=== PATIENT | female | born 1965 | race Caucasian/White ===

== ENCOUNTER 2016-11-15 | Outpatient (CLI) | payer OTHER | END 2016-11-15 08:46 | disposition home or self-care (01) | DX: Z53.9 Procedure and treatment not carried out, unspecified reason (principal) ==

== ENCOUNTER 2016-11-15 07:10 | Day surgery (SDC) | payer OTHER ==
[2016-11-15] MEDS ORDERED: LACTATED RINGERS 1,000 ML IV ONE (07:23)
[2016-11-15] MEDS ORDERED: BENZOCAINE/TETRACAINE/BUTAMBEN SPRAY 56 GM TOP ONE (08:46)
[2016-11-15] MEDS ORDERED: fentaNYL 100 MCG/2 ML VIAL IVP ONE (09:02)
[2016-11-15] MEDS ORDERED: MIDAZOLAM 2 MG/2 ML VIAL IVP ONE (09:02)
== END 2016-11-15 07:11 | disposition home or self-care (01) ==
PROC: 0DB68ZX Excision of Stomach, Via Natural or Artificial Opening Endoscopic, Diagnostic (ICD-10-PCS; 2016-11-15)
PROC: 0DB98ZX Excision of Duodenum, Via Natural or Artificial Opening Endoscopic, Diagnostic (ICD-10-PCS; principal; 2016-11-15 08:30)
DX: K21.9 Gastro-esophageal reflux disease without esophagitis (principal); K31.7 Polyp of stomach and duodenum; K44.9 Diaphragmatic hernia without obstruction or gangrene; I10 Essential (primary) hypertension; F41.8 Other specified anxiety disorders; Z87.891 Personal history of nicotine dependence
CPT/HCPCS: 43239; A9270; J7120

== ENCOUNTER 2016-11-22 | Outpatient (CLI) | payer OTHER | END 2016-11-22 16:19 | disposition home or self-care (01) | DX: M51.17 Intervertebral disc disorders with radiculopathy, lumbosacral region (principal) ==

== ENCOUNTER 2016-12-06 | Outpatient (CLI) | payer OTHER | END 2016-12-06 16:23 | disposition home or self-care (01) ==

== ENCOUNTER 2016-12-07 09:37 | Outpatient (CLI) | payer OTHER | END 2016-12-07 09:38 | disposition home or self-care (01) | DX: K76.0 Fatty (change of) liver, not elsewhere classified (principal) ==

== ENCOUNTER 2016-12-13 | Outpatient (CLI) | payer OTHER | END 2016-12-13 15:16 | disposition home or self-care (01) | DX: M54.16 Radiculopathy, lumbar region (principal) ==

== ENCOUNTER 2016-12-20 | Outpatient (CLI) | payer OTHER | END 2016-12-20 16:26 | disposition home or self-care (01) ==

== ENCOUNTER 2017-01-03 15:36 | Outpatient (CLI) | payer OTHER | END 2017-01-03 15:37 | disposition home or self-care (01) | DX: R16.0 Hepatomegaly, not elsewhere classified (principal) ==

== ENCOUNTER 2017-01-10 16:28 | Outpatient (CLI) | payer OTHER | END 2017-01-10 16:29 | disposition home or self-care (01) | DX: M54.16 Radiculopathy, lumbar region (principal); M50.30 Other cervical disc degeneration, unspecified cervical region ==

== ENCOUNTER 2017-01-17 16:13 | Outpatient (CLI) | payer OTHER | END 2017-01-17 16:14 | disposition home or self-care (01) | DX: M54.16 Radiculopathy, lumbar region (principal); M50.30 Other cervical disc degeneration, unspecified cervical region ==

== ENCOUNTER 2017-02-07 16:15 | Outpatient (CLI) | payer OTHER | END 2017-02-07 16:16 | disposition home or self-care (01) | DX: M54.16 Radiculopathy, lumbar region (principal) ==

== ENCOUNTER 2017-02-14 16:41 | Outpatient (CLI) | payer OTHER | END 2017-02-14 16:42 | disposition home or self-care (01) | DX: M54.16 Radiculopathy, lumbar region (principal); M50.30 Other cervical disc degeneration, unspecified cervical region ==

== ENCOUNTER 2017-02-21 16:15 | Outpatient (CLI) | payer OTHER | END 2017-02-21 23:59 | DX: M54.16 Radiculopathy, lumbar region (principal); M50.30 Other cervical disc degeneration, unspecified cervical region ==

== ENCOUNTER 2017-03-07 16:17 | Outpatient (CLI) | payer OTHER | END 2017-03-07 16:18 | disposition home or self-care (01) | DX: M54.16 Radiculopathy, lumbar region (principal); M51.17 Intervertebral disc disorders with radiculopathy, lumbosacral region ==

== ENCOUNTER 2017-03-12 07:16 | Outpatient (CLI) | payer OTHER | END 2017-03-12 07:17 | disposition home or self-care (01) | DX: M50.30 Other cervical disc degeneration, unspecified cervical region (principal) ==

== ENCOUNTER 2017-03-14 16:18 | Outpatient (CLI) | payer OTHER | END 2017-03-14 16:19 | disposition home or self-care (01) | DX: M54.16 Radiculopathy, lumbar region (principal); M50.30 Other cervical disc degeneration, unspecified cervical region ==

== ENCOUNTER 2017-03-21 16:13 | Outpatient (CLI) | payer OTHER | END 2017-03-21 16:14 | disposition home or self-care (01) | LOC: CAM 16:13 | PROVIDERS: ATTEND Physician Assistant Medical | DX: M54.16 Radiculopathy, lumbar region (principal) | CPT/HCPCS: 97810; 97811 ==

== ENCOUNTER 2017-04-04 16:20 | Outpatient (CLI) | payer OTHER | END 2017-04-04 16:21 | disposition home or self-care (01) | LOC: CAM 16:20 | PROVIDERS: ATTEND Physician Assistant Medical | DX: M54.16 Radiculopathy, lumbar region (principal) | CPT/HCPCS: 97810; 97811 ==

== ENCOUNTER 2017-04-11 16:14 | Outpatient (CLI) | payer OTHER | END 2017-04-11 16:15 | disposition home or self-care (01) | LOC: CAM 16:14 | PROVIDERS: ATTEND Physician Assistant Medical | DX: M54.16 Radiculopathy, lumbar region (principal); M50.30 Other cervical disc degeneration, unspecified cervical region | CPT/HCPCS: 97810; 97811 ==

== ENCOUNTER 2017-04-25 16:18 | Outpatient (CLI) | payer OTHER | END 2017-04-25 16:19 | disposition home or self-care (01) | LOC: CAM 16:18 | PROVIDERS: ATTEND Physician Assistant Medical | DX: M54.16 Radiculopathy, lumbar region (principal) | CPT/HCPCS: 97810; 97811 ==

== ENCOUNTER 2017-04-26 08:00 | Outpatient (CLI) | payer OTHER | END 2017-04-26 08:01 | disposition home or self-care (01) | LOC: LAB 08:00 | PROVIDERS: ATTEND Physician Assistant Medical | DX: M54.5 Low back pain (principal) | CPT/HCPCS: 80306 ==

== ENCOUNTER 2017-05-16 16:41 | Outpatient (CLI) | payer OTHER | END 2017-05-16 16:42 | disposition home or self-care (01) | LOC: CAM 16:41 | PROVIDERS: ATTEND Physician Assistant Medical | DX: M54.16 Radiculopathy, lumbar region (principal); M50.30 Other cervical disc degeneration, unspecified cervical region | CPT/HCPCS: 97810; 97811 ==

== ENCOUNTER 2017-05-23 16:20 | Outpatient (CLI) | payer OTHER | END 2017-05-23 16:21 | disposition home or self-care (01) | LOC: CAM 16:20 | PROVIDERS: ATTEND Physician Assistant Medical | DX: M54.16 Radiculopathy, lumbar region (principal) | CPT/HCPCS: 97810; 97811 ==

== ENCOUNTER 2017-06-20 16:25 | Outpatient (CLI) | payer OTHER | END 2017-06-20 16:26 | disposition home or self-care (01) | LOC: CAM 16:25 | PROVIDERS: ATTEND Physician Assistant Medical | DX: M54.16 Radiculopathy, lumbar region (principal) | CPT/HCPCS: 97811; 97813 ==

== ENCOUNTER 2017-06-27 15:08 | Outpatient (CLI) | payer OTHER | END 2017-06-27 15:09 | disposition home or self-care (01) | LOC: CAM 15:08 | PROVIDERS: ATTEND Physician Assistant Medical | DX: M54.16 Radiculopathy, lumbar region (principal); M50.30 Other cervical disc degeneration, unspecified cervical region | CPT/HCPCS: 97813; 97814 ==

== ENCOUNTER 2017-07-02 09:43 | Day surgery (SDC) | payer OTHER ==
[~2017-07-02 09:43] MED LIST: SODIUM CHLORIDE FLUSH 0.9% 10 ML SYRINGE IVP ONE; ceFAZolin 2 GM/50 ML 50 ML IV ONE
[2017-07-02] MEDS ORDERED: LACTATED RINGERS 1,000 ML IV ONE ×2 (10:05→14:34)
[2017-07-02] MEDS ORDERED: fentaNYL 100 MCG/2 ML VIAL IVP ONE (12:30)
[2017-07-02] MEDS ORDERED: METOPROLOL 5 MG/5 ML VIAL IVP ONE (12:30)
[2017-07-02] MEDS ORDERED: LIDOCAINE-PF 2% 10 ML AMP SUBQ ONE (12:30)
[2017-07-02] MEDS ORDERED: MIDAZOLAM 2 MG/2 ML VIAL IVP ONE (12:30)
[2017-07-02] MEDS ORDERED: PROPOFOL 200 MG/20 ML VIAL IVP ONE (12:30)
[2017-07-02] MEDS ORDERED: ONDANSETRON 4 MG/2 ML VIAL IVP ONE (12:30)
[2017-07-02] MEDS ORDERED: DEXAMETHASONE 4 MG/ML VIAL IVP ONE (12:30)
[2017-07-02] MEDS ORDERED: BUPIVACAINE 0.5% PF 30 ML VIAL INFIL ONE (12:39)
--- NOTE | 2017-07-02 15:06 | OPERATIVE REPORT ---
Operative Report - General Procedure Date: 07/02/17 Planned Procedure: Wide excision melanoma (right shoulder) with SLNB Pre-Op Diagnosis: Melanoma (right shoulder) Procedure Performed: Wide excision of melanoma right shoulder (marked with short stitch superiorlu and long stitch (laterally and anteriorly) Holden lymph node biopsy (right axilla) Post Op Diagnosis: Same - Procedure Note Primary Surgeon: Mat Macedo Anesthesia Provider: Song Cowart Anesthesia Technique: General LMA, Local (Total of 60 mL 1/2% marcaine (30 mL to each site)) IV Fluids (mL): 1,200 Estimated Blood Loss (mL): 20 Complications: None - Other Other Information/Narrative: OPERATIVE DESCRIPTION/REPORT: After verbal and written informed consent was obtained detailing the risks of infection, bleeding requiring transfusion with its risks, nerve injury, and , and after I met with the patient confirming the surgery and the site of the surgery, and after marking the excision, the patient was brought to the operative suite and placed supine on the operating table. Great care was taken to avoid pressure points to prevent pressure necrosis or nerve injury. Monitoring devices were applied along with TEDs and pneumatic compressive stockings (to prevent DVT). The patient received preoperative antibiotics for surgical prophylaxis. Song Cowart sedated and anethetized the patient for the entire procedure. The patient was prepped and draped in the usual sterile manner. With the patient draped my initials were clearly visible. A "time in" then confirmed that the patient was identified with 3 identifiers (name, date and medical record number), the history and physical was in the chart, the signed consent confirming the procedure was in the chart, the patient was in the correct position, the aforementioned prophylactic measures were in place or given, we had the correct personnel and equipment to complete the procedure and that anesthesia, surgery and nursing were given an opportunity to express any concerns. With the agreement of everyone in the room, we proceeded with the operation. After anesthetizing the skin with 1/2% Marcaine, a transverse incision was made at the inferior axillary hairline. Dissection using a combination of Bovie electrocautery and Metzenbaum scissors was used to dissect down to the fascia and open the fascia overlying axilla proper. Guidance was provided with the gamma probe. The location of the tumor in the shoulder and attempting to remove a sentinel lymph node in the axilla provided slightly conflicting data regarding the gamma probe but this was eventually sorted out. Gentle dissection using traction and counter-traction with Schnitz demonstrated the sentinel node clearly. The in vivo 10 secont count was [id number]. Traction and counter-traction allowed the lymph node to be dissected but the node could not be removed without disrupting the capsule. The ex vivo count was [id number]. Examination of the axilla with the probe did not reveal any area that was even remotely as "hot" as the sentinel lymph node that had been removed. Consequently, the sentinel lymph node was sent to pathology. Copious saline lavage was used to remove any debris, and hemostasis was obtained with Bovie electrocautery. The subcutaneous tissue was approximated using an interrupted 2 -0 Vicryl and the skin incision was approximated with 4-0 Monocryl in a running subcuticular manner. The axillary incision then had Dermabond placed upon it. Attention was directed to the shoulder lesion. After changing our gown and gloves as well as the equipment, an elliptical incision was made after the skin had been marked to ensure that there was at least 1 cm margins to the remaining lesion. This incision was then taken down to the muscle fascia without removing any muscle using Bovie electrocautery. Hemostasis was obtained using Bovie electrocautery. Dissection continued along the most fashion to excise the entire lesion. The lesion was marked with a short stitch superiorly and a long stitch laterally which was also anteriorly due to the location of the lesion. Subcutaneous tissues were approximated using interrupted 2-0 Vicryl sutures and the skin was approximated using interrupted mattress 3-0 nylon sutures. One additional simple suture was placed to approximate the skin is slightly nicer way. Both incisions and both subcutaenous areas were again injected with 1/2% Marcaine. The prep was washed off and benzoin and steristrips were placed on the incision. At this point a time out was performed that confirmed that all the counts were correct, the procedure that was performed, the blood loss, the urine output, the IV fluids administered, and the patients condition. Dressings were applied. Having tolerated the procedure well, the patient was subsequently extubated and taken to PACU in good and stable condition. Anthony disclaimer: Part of this medical record were created using voice recognition technology. Because of the inherent limitations of the system, occasional same sounding word substitutions and grammatical errors do occur and persist despite proofreading. Please read this document for context.
[2017-07-02 15:51] VITALS: BP 138/76
--- NOTE | 2017-07-02 16:44 | Nuclear Medicine Report ---
SENTINEL LYMPH NODE INJECTION: 07/02/2017 CLINICAL INDICATION: Melanoma right shoulder. Technetium-99m filtered sulfur colloid, 1.37 mCi, in 5 mL buffered lidocaine was injected around the biopsy site on the patient's right shoulder. Initial posterior imaging does not demonstrate definite right axillary uptake, but faint uptake may be present on the anterior image. IMPRESSION: ASHLY-BIOPSY INJECTION FOR MELANOMA SENTINEL LYMPH NODE IDENTIFICATION. JOB #: [id number] EXT JOB #:[id number]
== END 2017-07-02 09:44 | disposition home or self-care (01) ==
LOC: DI 09:43
PROVIDERS: ATTEND Surgery
PROC: 0JBD0ZZ Excision of Right Upper Arm Subcutaneous Tissue and Fascia, Open Approach (ICD-10-PCS; principal; 2017-07-02 11:45)
PROC: 07B50ZX Excision of Right Axillary Lymphatic, Open Approach, Diagnostic (ICD-10-PCS; 2017-07-02 11:45)
DX: C43.61 Malignant melanoma of right upper limb, including shoulder (principal); I10 Essential (primary) hypertension; E28.2 Polycystic ovarian syndrome; Z79.84 Long term (current) use of oral hypoglycemic drugs; E78.00 Pure hypercholesterolemia, unspecified; F32.9 Major depressive disorder, single episode, unspecified; F41.9 Anxiety disorder, unspecified; Z87.891 Personal history of nicotine dependence
CPT/HCPCS: 78195; 88305; 88307; 88341; 88342

== ENCOUNTER 2017-08-08 09:56 | Outpatient (CLI) | payer OTHER ==
--- NOTE | 2017-08-09 08:43 | Nuclear Medicine Report ---
EXAM: BONE SCAN EXAM DATE: 08/08/2017 01:03 PM. CLINICAL HISTORY: MELANOMA. Left hip pain for a couple of months. COMPARISON: Abdomen/pelvis CT 08/07/2017. TECHNIQUE: Following the intravenous administration of 31.9 mCi of technetium 99m MDP and an appropri ate delay, a whole-body scan was performed in anterior and posterior projections. Site-specific spot views of the region of interest were obtained in various projections. FINDINGS: Exam Quality: Normal overall osseous radiotracer uptake. Physiological tracer uptake in bilateral col lecting systems. Skull: No focal uptake. Thorax: No focal lesions in ribs or sternum. Pelvis: There is moderately increased radiotracer uptake in the left greater trochanter. Spine: There is moderate to intensely increased uptake in the bilateral L3-L4 facets corresponding wi th degenerative changes on CT. Other: Mildly increased uptake in the right elbow compared to the left, nonspecific. IMPRESSION: 1. Moderately increased radiotracer uptake in the left greater trochanter. There is some enthesopathy noted on the CT which might explain the increased uptake. An isolated melanoma metastasis in this lo cation is considered unlikely. Other considerations might include fracture or stress reaction. 2. Degenerative facet uptake bilaterally at L3-L4. [facility] Referring Provider Line: [phone] SITE ID: [id number]
== END 2017-08-08 09:57 | disposition home or self-care (01) ==
LOC: DI 09:56
PROVIDERS: ATTEND Internal Medicine Hematology & Oncology
DX: C43.9 Malignant melanoma of skin, unspecified (principal); M77.8 Other enthesopathies, not elsewhere classified; M47.896 Other spondylosis, lumbar region
CPT/HCPCS: 78306; A9503

== ENCOUNTER 2017-08-08 16:13 | Outpatient (CLI) | payer OTHER | END 2017-08-08 16:14 | disposition home or self-care (01) | LOC: CAM 16:13 | PROVIDERS: ATTEND Physician Assistant Medical | DX: M54.16 Radiculopathy, lumbar region (principal); M50.30 Other cervical disc degeneration, unspecified cervical region | CPT/HCPCS: 97810; 97811 ==

== ENCOUNTER 2017-08-15 07:37 | Outpatient (CLI) | payer OTHER ==
[2017-08-15 07:52] LABS: BASOPHILS # (AUTO) 0.1 10^3/uL (0.0-0.1); BASOPHILS % (AUTO) 1.1 %; EOSINOPHILS # (AUTO) 0.3 10^3/uL (0.0-0.7); EOSINOPHILS % (AUTO) 4.7 %; HCT - HEMATOCRIT 39.7 % (37.0-47.0); HGB - HEMOGLOBIN 13.5 g/dL (12.0-16.0); LYMPHOCYTES # (AUTO) 2.3 10^3/uL (1.5-3.5); LYMPHOCYTES % (AUTO) 40.8 %; MEAN CORPUSCULAR HEMOGLOBIN 30.9 pg (27.0-31.0); MEAN CORPUSCULAR HGB CONC 33.9 g/dL (32.0-36.0); MEAN PLATELET VOLUME 9.2 fL (7.9-10.8); MONOCYTES # (AUTO) 0.5 10^3/uL (0.0-1.0); MONOCYTES % (AUTO) 8.4 %; NEUTROPHILS # (AUTO) 2.5 10^3/uL (1.5-6.6); RED BLOOD COUNT 4.37 10^6/uL (4.20-5.40); UNCORRECTED WHITE BLOOD COUNT 5.5 x10^3/uL; WHITE BLOOD COUNT 5.5 x10^3/uL (4.8-10.8)
[2017-08-15 08:13] LABS: HEMOGLOBIN A1C 0.59 g/dL
[2017-08-15 08:20] LABS: ALBUMIN/GLOBULIN RATIO 1.5 (1.0-2.2); BILIRUBIN,TOTAL 0.5 mg/dL (0.2-1.0); BUN - BLOOD UREA NITROGEN 18 mg/dL (6-20); CALCIUM 9.6 mg/dL (8.5-10.3); CARBON DIOXIDE - CO2 25 mmol/L (21-32); CHLORIDE 102 mmol/L (101-111); CHOL/HDL RATIO 4.8 (<4.4); CHOLESTEROL 195 mg/dL; CREATININE 0.8 mg/dL (0.4-1.0); GFR - MDRD 75 (>89); GLUCOSE 106 mg/dL (70-100); HDL CHOLESTEROL 41 mg/dL; POTASSIUM 3.5 mmol/L (3.5-5.0); SODIUM 138 mmol/L (135-145); TRIGLYCERIDES 358 mg/dL; VLDL CHOLESTEROL 72 mg/dL
== END 2017-08-15 07:38 | disposition home or self-care (01) ==
LOC: LAB 07:37
PROVIDERS: ATTEND Physician Assistant Medical
DX: Z00.00 Encounter for general adult medical examination without abnormal findings (principal); R73.9 Hyperglycemia, unspecified
CPT/HCPCS: 36415; 80053; 80061; 83036; 84443; 85025

== ENCOUNTER 2017-08-21 15:39 | Outpatient (CLI) | payer OTHER ==
--- NOTE | 2017-08-22 22:13 | Ultrasound Report ---
THYROID ULTRASOUND: 08/21/2017 COMPARISON STUDY: CT 08/07/2017. INDICATION: Hypothyroidism and a thyroid cyst. TECHNIQUE: Sonographic evaluation of the thyroid was performed. Real-time scanning was performed wi th labor representative static images obtained. There are cystic foci within the right lobe of the thyroid that measure up to 6 mm. No complicating features. There are solid nodules of the mid left thyroid lobe that measure up to 8 mm. The isthmus appears un remarkable. No lymphadenopathy is seen. Right lobe: 4.9 x 1.5 x 1.3 cm. Left lobe: 5.0 x 1.9 x 1.3 cm. Isthmus: 4 mm. IMPRESSION: BILATERAL SUBCENTIMETER THYROID NODULES AND CYSTS DETAILED ABOVE. JOB #: [id number] EXT JOB #:[id number]
== END 2017-08-21 15:40 | disposition home or self-care (01) ==
LOC: DI 15:39
PROVIDERS: ATTEND Physician Assistant Medical
DX: E04.2 Nontoxic multinodular goiter (principal)
CPT/HCPCS: 76536

== ENCOUNTER 2017-09-25 15:26 | Outpatient (CLI) | payer OTHER ==
[2017-09-25 17:08] LABS: THYROID STIMULATING HORMONE 0.37 uIU/mL (0.34-5.60)
== END 2017-09-25 15:27 | disposition home or self-care (01) ==
LOC: LAB 15:26
PROVIDERS: ATTEND Physician Assistant Medical
DX: E03.9 Hypothyroidism, unspecified (principal)
CPT/HCPCS: 36415; 84439; 84443; 84481; 86376

== ENCOUNTER 2017-09-26 16:21 | Outpatient (CLI) | payer OTHER | END 2017-09-26 16:22 | disposition home or self-care (01) | LOC: CAM 16:21 | PROVIDERS: ATTEND Physician Assistant Medical | DX: M54.16 Radiculopathy, lumbar region (principal); M50.30 Other cervical disc degeneration, unspecified cervical region | CPT/HCPCS: 97813; 97814 ==

== ENCOUNTER 2017-10-11 15:49 | Outpatient (CLI) | payer OTHER | END 2017-10-11 15:50 | disposition home or self-care (01) | LOC: LAB.WCP 15:49 | PROVIDERS: ATTEND Physician Assistant Medical | DX: R05 Cough (principal); M79.1 Myalgia | CPT/HCPCS: 87275; 87276 ==

== ENCOUNTER 2017-11-21 16:18 | Outpatient (CLI) | payer OTHER | END 2017-11-21 16:19 | disposition home or self-care (01) | LOC: CAM 16:18 | PROVIDERS: ATTEND Physician Assistant Medical | DX: M79.1 Myalgia (principal); M54.16 Radiculopathy, lumbar region; M50.30 Other cervical disc degeneration, unspecified cervical region | CPT/HCPCS: 97813; 97814 ==

== ENCOUNTER 2017-12-05 16:15 | Outpatient (CLI) | payer OTHER | END 2017-12-05 16:16 | disposition home or self-care (01) | LOC: CAM 16:15 | PROVIDERS: ATTEND Physician Assistant Medical | DX: M79.1 Myalgia (principal); M50.30 Other cervical disc degeneration, unspecified cervical region; M54.16 Radiculopathy, lumbar region | CPT/HCPCS: 97813; 97814 ==

== ENCOUNTER 2017-12-12 16:19 | Outpatient (CLI) | payer OTHER | END 2017-12-12 16:20 | disposition home or self-care (01) | LOC: CAM 16:19 | PROVIDERS: ATTEND Physician Assistant Medical | DX: M50.30 Other cervical disc degeneration, unspecified cervical region (principal); M79.1 Myalgia; M54.16 Radiculopathy, lumbar region | CPT/HCPCS: 97813; 97814 ==

== ENCOUNTER 2018-01-09 16:15 | Outpatient (CLI) | payer OTHER | END 2018-01-09 16:16 | disposition home or self-care (01) | LOC: CAM 16:15 | PROVIDERS: ATTEND Physician Assistant Medical | DX: M79.1 Myalgia (principal); M54.16 Radiculopathy, lumbar region; M50.30 Other cervical disc degeneration, unspecified cervical region | CPT/HCPCS: 97813; 97814 ==

== ENCOUNTER 2018-01-16 16:16 | Outpatient (CLI) | payer OTHER | END 2018-01-16 16:17 | disposition home or self-care (01) | LOC: CAM 16:16 | PROVIDERS: ATTEND Physician Assistant Medical | DX: M79.1 Myalgia (principal); M54.16 Radiculopathy, lumbar region; M50.30 Other cervical disc degeneration, unspecified cervical region | CPT/HCPCS: 97813; 97814 ==

== ENCOUNTER 2018-02-20 16:13 | Outpatient (CLI) | payer OTHER | END 2018-02-20 16:14 | disposition home or self-care (01) | LOC: CAM 16:13 | PROVIDERS: ATTEND Physician Assistant Medical | DX: M79.1 Myalgia (principal); M54.16 Radiculopathy, lumbar region; M50.30 Other cervical disc degeneration, unspecified cervical region | CPT/HCPCS: 97813; 97814 ==

== ENCOUNTER 2018-03-04 06:44 | Outpatient (CLI) | payer OTHER ==
[2018-03-04 07:07] LABS: BASOPHILS # (AUTO) 0.1 10^3/uL (0.0-0.1); BASOPHILS % (AUTO) 1.1 %; EOSINOPHILS # (AUTO) 0.4 10^3/uL (0.0-0.7); EOSINOPHILS % (AUTO) 6.3 %; HGB - HEMOGLOBIN 13.9 g/dL (12.0-16.0); LYMPHOCYTES # (AUTO) 2.8 10^3/uL (1.5-3.5); LYMPHOCYTES % (AUTO) 45.4 %; MEAN CORPUSCULAR HEMOGLOBIN 31.8 pg (27.0-31.0); MEAN CORPUSCULAR HGB CONC 34.1 g/dL (32.0-36.0); MEAN CORPUSCULAR VOLUME 93.1 fL (81.0-99.0); MEAN PLATELET VOLUME 9.9 fL (7.9-10.8); MONOCYTES # (AUTO) 0.4 10^3/uL (0.0-1.0); NEUTROPHILS # (AUTO) 2.5 10^3/uL (1.5-6.6); NEUTROPHILS % (AUTO) 40.2 %; PLT - PLATELET COUNT 183 10^3/uL (130-450); RED BLOOD COUNT 4.37 10^6/uL (4.20-5.40); RED CELL DISTRIBUTION WIDTH 13.1 % (12.0-15.0); WHITE BLOOD COUNT 6.3 x10^3/uL (4.8-10.8)
[2018-03-04 07:13] LABS: ALBUMIN/GLOBULIN RATIO 1.4 (1.0-2.2); ALKALINE PHOSPHATASE 30 IU/L (42-121); ALT ALANINE AMINOTRANSFERASE 27 IU/L (10-60); AST ASPARTATE AMINOTRANSFERASE 25 IU/L (10-42); BILIRUBIN,TOTAL 0.6 mg/dL (0.2-1.0); BUN - BLOOD UREA NITROGEN 22 mg/dL (6-20); CALCIUM 9.4 mg/dL (8.5-10.3); CARBON DIOXIDE - CO2 27 mmol/L (21-32); CHLORIDE 102 mmol/L (101-111); CHOL/HDL RATIO 4.7 (<4.4); CHOLESTEROL 184 mg/dL; CREATININE 0.7 mg/dL (0.4-1.0); GFR - MDRD 88 (>89); GLUCOSE 103 mg/dL (70-100); HDL CHOLESTEROL 39 mg/dL; LDL CHOLESTEROL,CALCULATED 87 mg/dL; LDL/HDL RATIO 2.2 (<4.4); SODIUM 138 mmol/L (135-145); TOTAL PROTEIN 6.9 g/dL (6.7-8.2); VLDL CHOLESTEROL 58 mg/dL
== END 2018-03-04 06:45 | disposition home or self-care (01) ==
LOC: LAB 06:44
PROVIDERS: ATTEND Physician Assistant Medical
DX: E78.5 Hyperlipidemia, unspecified (principal); E03.9 Hypothyroidism, unspecified; K21.9 Gastro-esophageal reflux disease without esophagitis
CPT/HCPCS: 36415; 80053; 80061; 83721; 84443; 85025

== ENCOUNTER 2018-03-06 16:17 | Outpatient (CLI) | payer OTHER | END 2018-03-06 16:18 | disposition home or self-care (01) | LOC: CAM 16:17 | PROVIDERS: ATTEND Physician Assistant Medical | DX: M79.1 Myalgia (principal); M54.16 Radiculopathy, lumbar region; M50.30 Other cervical disc degeneration, unspecified cervical region | CPT/HCPCS: 97810; 97811 ==

== ENCOUNTER 2018-03-17 10:40 | Day surgery (SDC) | payer OTHER ==
[2018-03-17] MEDS ORDERED: LACTATED RINGERS 1,000 ML IV ONE (11:03)
[2018-03-17] MEDS ORDERED: LIDO GARGLE 30 ML BOTTLE ONE (11:26)
[2018-03-17] MEDS ORDERED: fentaNYL 100 MCG/2 ML VIAL IVP ONE (11:30)
[2018-03-17] MEDS ORDERED: MIDAZOLAM 2 MG/2 ML VIAL IVP ONE (11:30)
[2018-03-17] MEDS ORDERED: LIDO GARGLE 30 ML BOTTLE TOP ONE (11:40)
[2018-03-17] MEDS ORDERED: BENZOCAINE/TETRACAINE/BUTAMBEN 20 GM TOP ONE (11:40)
[2018-03-17 12:08] VITALS: BP 118/70
== END 2018-03-17 10:41 | disposition home or self-care (01) ==
LOC: SDS 10:40
PROVIDERS: ATTEND Surgery
PROC: 0DD58ZX Extraction of Esophagus, Via Natural or Artificial Opening Endoscopic, Diagnostic (ICD-10-PCS; principal; 2018-03-17 12:45)
DX: R13.10 Dysphagia, unspecified (principal); K29.70 Gastritis, unspecified, without bleeding; R10.13 Epigastric pain; I10 Essential (primary) hypertension; K21.9 Gastro-esophageal reflux disease without esophagitis; Z87.891 Personal history of nicotine dependence
CPT/HCPCS: 43235; 87081; A9270; J7120

== ENCOUNTER 2018-03-20 16:20 | Outpatient (CLI) | payer OTHER | END 2018-03-20 16:21 | disposition home or self-care (01) | LOC: CAM 16:20 | PROVIDERS: ATTEND Physician Assistant Medical | DX: M79.1 Myalgia (principal); M54.16 Radiculopathy, lumbar region; M50.30 Other cervical disc degeneration, unspecified cervical region | CPT/HCPCS: 97813; 97814 ==

== ENCOUNTER 2018-03-27 16:07 | Outpatient (CLI) | payer OTHER | END 2018-03-27 16:08 | disposition home or self-care (01) | LOC: CAM 16:07 | PROVIDERS: ATTEND Physician Assistant Medical | DX: M79.1 Myalgia (principal); M54.16 Radiculopathy, lumbar region; M50.30 Other cervical disc degeneration, unspecified cervical region | CPT/HCPCS: 97813; 97814 ==

== ENCOUNTER 2018-04-10 16:19 | Outpatient (CLI) | payer OTHER | END 2018-04-10 16:20 | disposition home or self-care (01) | LOC: CAM 16:19 | PROVIDERS: ATTEND Physician Assistant Medical | DX: M79.1 Myalgia (principal); M54.16 Radiculopathy, lumbar region; M50.30 Other cervical disc degeneration, unspecified cervical region | CPT/HCPCS: 97813; 97814 ==

== ENCOUNTER 2018-04-24 16:22 | Outpatient (CLI) | payer OTHER | END 2018-04-24 16:23 | disposition home or self-care (01) | LOC: CAM 16:22 | PROVIDERS: ATTEND Physician Assistant Medical | DX: M79.1 Myalgia (principal); M54.16 Radiculopathy, lumbar region; M50.30 Other cervical disc degeneration, unspecified cervical region | CPT/HCPCS: 97813; 97814 ==

== ENCOUNTER 2018-05-15 16:17 | Outpatient (CLI) | payer OTHER | END 2018-05-15 16:18 | disposition home or self-care (01) | LOC: CAM 16:17 | PROVIDERS: ATTEND Physician Assistant Medical | DX: M79.1 Myalgia (principal); M54.16 Radiculopathy, lumbar region; M50.30 Other cervical disc degeneration, unspecified cervical region | CPT/HCPCS: 97810; 97811 ==

== ENCOUNTER 2018-05-23 12:49 | Outpatient (CLI) | payer OTHER | END 2018-05-23 12:50 | disposition home or self-care (01) | LOC: LAB 12:49 | PROVIDERS: ATTEND Physician Assistant Medical | DX: E03.9 Hypothyroidism, unspecified (principal) | CPT/HCPCS: 36415; 84443 ==

== ENCOUNTER 2018-06-05 16:13 | Outpatient (CLI) | payer OTHER | END 2018-06-05 16:14 | disposition home or self-care (01) | LOC: CAM 16:13 | PROVIDERS: ATTEND Physician Assistant Medical | DX: M79.1 Myalgia (principal); M54.16 Radiculopathy, lumbar region; M50.30 Other cervical disc degeneration, unspecified cervical region | CPT/HCPCS: 97810; 97811 ==

== ENCOUNTER 2018-07-17 16:14 | Outpatient (CLI) | payer OTHER | END 2018-07-17 16:15 | disposition home or self-care (01) | LOC: CAM 16:14 | PROVIDERS: ATTEND Physician Assistant Medical | DX: M79.1 Myalgia (principal); M54.16 Radiculopathy, lumbar region; M50.30 Other cervical disc degeneration, unspecified cervical region | CPT/HCPCS: 97810; 97811 ==

== ENCOUNTER 2018-08-21 16:10 | Outpatient (CLI) | payer OTHER | END 2018-08-21 16:11 | disposition home or self-care (01) | LOC: CAM 16:10 | PROVIDERS: ATTEND Physician Assistant Medical | DX: M79.10 Myalgia, unspecified site (principal); M54.16 Radiculopathy, lumbar region; M50.30 Other cervical disc degeneration, unspecified cervical region | CPT/HCPCS: 97813; 97814 ==

== ENCOUNTER 2018-09-04 16:08 | Outpatient (CLI) | payer OTHER | END 2018-09-04 16:09 | disposition home or self-care (01) | LOC: CAM 16:08 | PROVIDERS: ATTEND Physician Assistant Medical | DX: M79.10 Myalgia, unspecified site (principal); M54.16 Radiculopathy, lumbar region; M50.30 Other cervical disc degeneration, unspecified cervical region | CPT/HCPCS: 97813; 97814 ==

== ENCOUNTER 2018-09-08 14:53 | Outpatient (CLI) | payer OTHER ==
--- NOTE | 2018-09-09 14:01 | Mammography Report ---
Reason: SCREENING MAMMO Procedure Date: 09/08/2018 Accession Number: [id number] / [id number] Procedure: [facility] - Screening Mammo w/Kyle CPT Code: FULL RESULT: EXAM: Screening Mammo w/Kyle DATE: 09/08/2018 3:21 PM CLINICAL HISTORY: Routine screening. Family history breast cancer grandmother age 75. No personal history of breast cancer. TECHNIQUE: Bilateral CC and MLO views were obtained. COMPARISON: 09/04/2017 through 06/04/2014. FINDINGS: The breasts demonstrate scattered fibroglandular densities bilaterally. Bilateral breasts: There are no suspicious masses, calcifications or areas of distortion. IMPRESSION: Negative examination RECOMMENDATION: Routine annual screening unless otherwise clinically indicated. BI-RADS CATEGORY 1: Negative STANDARD QUALIFYING STATEMENTS: 1. This examination was not reviewed with the aid of Computer-Aided Detection (CAD). 2. A negative or benign imaging report should not preclude biopsy if clinically suspicious findings are present. 3. Dense breasts may obscure an underlying neoplasm. 4. This examination was reviewed with the aid of 3D breast imaging (tomosynthesis).
== END 2018-09-08 14:54 | disposition home or self-care (01) ==
LOC: DI 14:53
DX: Z12.31 Encounter for screening mammogram for malignant neoplasm of breast (principal); Z80.3 Family history of malignant neoplasm of breast
CPT/HCPCS: 77063; 77067

== ENCOUNTER 2018-09-09 15:34 | Outpatient (CLI) | payer OTHER ==
[2018-09-11 23:46] LABS: ALPHA 1 GLOBULIN 0.3 g/dL (0.2-0.3); ALPHA 2 GLOBULIN 0.7 g/dL (0.5-0.9); BETA 1 GLOBULIN 0.6 g/dL (0.4-0.6); BETA 2 GLOBULIN 0.3 g/dL (0.2-0.5); GAMMA GLOBULIN 0.7 g/dL (0.8-1.7)
== END 2018-09-09 15:35 | disposition home or self-care (01) ==
LOC: LAB 15:34
PROVIDERS: ATTEND Psychiatry & Neurology Neurology
DX: M79.2 Neuralgia and neuritis, unspecified (principal); R20.0 Anesthesia of skin
CPT/HCPCS: 36415; 81599; 82607; 83921; 84155; 84165; 85651; 86140; 86235; 86334

== ENCOUNTER 2018-09-25 16:17 | Outpatient (CLI) | payer OTHER | END 2018-09-25 16:18 | disposition home or self-care (01) | LOC: CAM 16:17 | PROVIDERS: ATTEND Physician Assistant Medical | DX: M79.10 Myalgia, unspecified site (principal); M54.16 Radiculopathy, lumbar region; M50.30 Other cervical disc degeneration, unspecified cervical region | CPT/HCPCS: 97813; 97814 ==

== ENCOUNTER 2018-09-26 10:29 | Outpatient (CLI) | payer OTHER | END 2018-09-26 10:30 | disposition home or self-care (01) | LOC: LAB 10:29 | PROVIDERS: ATTEND Psychiatry & Neurology Neurology | DX: D47.2 Monoclonal gammopathy (principal) | CPT/HCPCS: 81599; 84156; 86335 ==

== ENCOUNTER 2019-01-26 20:48 | Outpatient (CLI) | payer BC ==
--- NOTE | 2019-01-27 11:33 | XRAY Report ---
Reason: right inferior Procedure Date: 01/26/2019 Accession Number: [id number] / [id number] Procedure: XR - Ribs w/PA Chest RT CPT Code: FULL RESULT: EXAM: RIGHT RIB RADIOGRAPHY EXAM DATE: 01/26/2019 09:43 PM. CLINICAL HISTORY: Right inferior. COMPARISON: None. TECHNIQUE: 1 view of the chest and 2 views of the ribs. FINDINGS: Bones: Normal. No fracture or bone lesion. Lungs: No focal opacities. No pneumothorax. No pleural effusions. Mediastinum: Heart and mediastinal contours are unremarkable. Other: None. IMPRESSION: Normal chest and rib radiography. [facility]
--- NOTE | 2019-01-27 11:39 | Ultrasound Report ---
Reason: ABDOMINAL PAIN,RIGHT UPPER QUADRANT Procedure Date: 01/26/2019 Accession Number: [id number] / [id number] Procedure: US - Abdomen Limited CPT Code: FULL RESULT: EXAM: ABDOMEN ULTRASOUND LIMITED, RUQ EXAM DATE: 01/26/2019 09:23 PM. CLINICAL HISTORY: Abdominal pain, right upper quadrant. COMPARISON: ABDOMEN LIMITED 12/07/2016 9:51 AM ABDOMEN/PELVIS W/ 08/07/2017 3:05 PM. TECHNIQUE: Real-time scanning was performed with static images obtained. FINDINGS: Liver: Mildly increase in background echotexture similar to prior. 1.5 cm homogeneously hyperechoic liver mass near the gallbladder fossa not previously included on prior ultrasound and possibly correlating to a subtle enhancing finding seen on comparison CT of 2017. 20 cm stable from prior. Main portal vein flow: Hepatopetal. Gallbladder: Gallbladder is mildly contracted despite NPO status x8 hours. Wall thickness is equivocal at 3 mm. No stones or pericholecystic fluid or tenderness imaging. Biliary System: CBD measures 5 mm mm. No intrahepatic or extrahepatic ductal dilatation. Other: Normal images of the right kidney. IMPRESSION: 1. Mildly contracted-appearing gallbladder. No evidence of cholelithiasis or cholecystitis. 2. Mildly echogenic liver borderline increased in size similar to prior favoring steatosis. 3. 1.5 cm hyperechoic nodule of liver near the gallbladder fossa favors hemangioma. This finding was likely present on prior CT of 08/07/2017. [facility]
== END 2019-01-26 20:49 | disposition home or self-care (01) ==
LOC: DI 20:48
PROVIDERS: ATTEND Physician Assistant Medical
DX: R10.11 Right upper quadrant pain (principal); R16.0 Hepatomegaly, not elsewhere classified
CPT/HCPCS: 76705

== ENCOUNTER 2019-02-05 14:06 | Outpatient (CLI) | payer BC ==
[2019-02-05 14:48] LABS: CREATININE 0.8 mg/dL (0.4-1.0)
== END 2019-02-05 14:07 | disposition home or self-care (01) ==
LOC: LAB 14:06
PROVIDERS: ATTEND Family Medicine
DX: R10.11 Right upper quadrant pain (principal)
CPT/HCPCS: 36415; 82565

== ENCOUNTER 2019-02-09 08:52 | Outpatient (CLI) | payer BC ==
[2019-02-09] MEDS ORDERED: IOVERSOL 320 50 ML VIAL ONE (09:05)
[2019-02-09] MEDS ORDERED: IOVERSOL 320 100 ML VIAL IVP ONE ×2 (09:05→16:35)
--- NOTE | 2019-02-09 14:07 | CT Report ---
Reason: ABDOMINAL PAIN,RIGHT UPPER QUADRANT Procedure Date: 02/09/2019 Accession Number: [id number] / [id number] Procedure: CT - ABDOMEN W CPT Code: FULL RESULT: EXAM: CT ABDOMEN EXAM DATE: 02/09/2019 09:37 AM. CLINICAL HISTORY: ABDOMINAL PAIN,RIGHT UPPER QUADRANT. COMPARISON: ABDOMEN/PELVIS W/ 04/27/2014 5:07 PM ABDOMEN LIMITED 01/26/2019 9:03 PM ABDOMEN/PELVIS W/ 08/07/2017 3:05 PM. TECHNIQUE: Routine helical CT imaging was performed through the abdomen. IV contrast: ISOVUE 300 100mL Enteric contrast: No. Reconstruction: Coronal and sagittal. In accordance with CT protocol optimization, one or more of the following dose reduction techniques were utilized for this exam: automated exposure control, adjustment of mA and/or KV based on patient size, or use of iterative reconstructive technique. FINDINGS: Lung Bases: Lung bases are clear. No pleural or pericardial effusions. No cardiac enlargement. Small hiatal hernia noted. Liver: Mildly fatty liver. Portal vein is patent. No mass or intrahepatic bile duct dilation. Gallbladder/Bile Ducts: Unremarkable. Spleen: Normal. Pancreas: Normal. Adrenal Glands: Normal. Kidneys: Normal. No masses or hydronephrosis. Peritoneal Cavity/Bowel: Normal. No free fluid, free air or adenopathy. No masses or acute inflammatory process. Appendix is surgically absent. Scattered colonic diverticulosis is noted. Vasculature: No aneurysms or other significant abnormality. Patchy atheromatous calcified plaques are noted in the abdominal aorta. Bones: No significant abnormality. Other: None. IMPRESSION: 1. Mildly fatty liver. No mass. 2. Normal gallbladder and common bile duct. 3. Diverticulosis. Previous appendectomy. No inflammatory changes are noted. [facility]
[2019-02-09] MEDS ORDERED: IOVERSOL 320 50 ML VIAL PO ONE (16:35)
== END 2019-02-09 08:53 | disposition home or self-care (01) ==
LOC: DI 08:52
PROVIDERS: ATTEND Physician Assistant Medical
DX: R10.11 Right upper quadrant pain (principal); K76.0 Fatty (change of) liver, not elsewhere classified; K57.30 Diverticulosis of large intestine without perforation or abscess without bleeding
CPT/HCPCS: 74160; Q9967

== ENCOUNTER 2019-06-25 08:00 | Outpatient (CLI) | payer BC | END 2019-06-25 08:01 | disposition home or self-care (01) | LOC: LAB.R 08:00 | PROVIDERS: ATTEND Family Medicine | DX: N39.0 Urinary tract infection, site not specified (principal) | CPT/HCPCS: 87086; 87181 ==

== ENCOUNTER 2019-08-21 10:57 | Outpatient (CLI) | payer BC ==
[2019-08-21 11:09] LABS: BASOPHILS # (AUTO) 0.1 10^3/uL (0.0-0.1); BASOPHILS % (AUTO) 0.7 %; EOSINOPHILS # (AUTO) 0.2 10^3/uL (0.0-0.7); EOSINOPHILS % (AUTO) 3.2 %; HGB - HEMOGLOBIN 8.4 g/dL (12.0-16.0); LYMPHOCYTES # (AUTO) 2.3 10^3/uL (1.5-3.5); LYMPHOCYTES % (AUTO) 33.2 %; MEAN CORPUSCULAR HEMOGLOBIN 24.2 pg (27.0-31.0); MEAN CORPUSCULAR VOLUME 83.6 fL (81.0-99.0); MEAN PLATELET VOLUME 10.3 fL (7.9-10.8); MONOCYTES # (AUTO) 0.5 10^3/uL (0.0-1.0); MONOCYTES % (AUTO) 6.9 %; NEUTROPHILS # (AUTO) 3.8 10^3/uL (1.5-6.6); NEUTROPHILS % (AUTO) 55.6 %; PLT - PLATELET COUNT 231 10^3/uL (130-450); RED BLOOD COUNT 3.47 10^6/uL (4.20-5.40); RED CELL DISTRIBUTION WIDTH 14.8 % (12.0-15.0); WHITE BLOOD COUNT 6.9 x10^3/uL (4.8-10.8)
[2019-08-21 11:29] LABS: ALBUMIN 3.6 g/dL (3.2-5.5); ALBUMIN/GLOBULIN RATIO 1.1 (1.0-2.2); ALKALINE PHOSPHATASE 32 IU/L (42-121); ALT ALANINE AMINOTRANSFERASE 19 IU/L (10-60); AST ASPARTATE AMINOTRANSFERASE 21 IU/L (10-42); BILIRUBIN,TOTAL 0.4 mg/dL (0.2-1.0); BUN - BLOOD UREA NITROGEN 18 mg/dL (6-20); CALCIUM 9.6 mg/dL (8.5-10.3); CARBON DIOXIDE - CO2 26 mmol/L (21-32); CHLORIDE 104 mmol/L (101-111); CHOL/HDL RATIO 3.8 (<4.4); CHOLESTEROL 155 mg/dL; CREATININE 0.6 mg/dL (0.4-1.0); GFR - MDRD 104 (>89); GLUCOSE 100 mg/dL (70-100); HDL CHOLESTEROL 41 mg/dL; LDL CHOLESTEROL,CALCULATED 51 mg/dL; LDL/HDL RATIO 1.2 (<4.4); SODIUM 141 mmol/L (135-145); TOTAL PROTEIN 6.8 g/dL (6.7-8.2); VLDL CHOLESTEROL 63 mg/dL
== END 2019-08-21 10:58 | disposition home or self-care (01) ==
LOC: LAB 10:57
PROVIDERS: ATTEND Physician Assistant Medical
DX: E78.5 Hyperlipidemia, unspecified (principal); R53.83 Other fatigue; E03.9 Hypothyroidism, unspecified; K21.9 Gastro-esophageal reflux disease without esophagitis
CPT/HCPCS: 36415; 80053; 80061; 82306; 82607; 83721; 84443; 85025

== ENCOUNTER 2019-08-24 11:57 | Outpatient (CLI) | payer BC ==
[2019-08-24 12:42] LABS: % IRON SATURATION 4 % (20-50); IRON 17 ug/dL (28-170); TOTAL IRON BINDING CAPACITY 477 ug/dL (250-450); TRANSFERRIN 341 mg/dL (192-382)
[2019-08-24 12:56] LABS: FERRITIN 4.1 ng/mL (11.0-306.8)
== END 2019-08-24 11:58 | disposition home or self-care (01) ==
LOC: LAB 11:57
PROVIDERS: ATTEND Physician Assistant Medical
DX: D50.9 Iron deficiency anemia, unspecified (principal)
CPT/HCPCS: 36415; 82728; 82746; 83540; 84466

== ENCOUNTER 2019-08-27 09:20 | Day surgery (SDC) | payer BC ==
[~2019-08-27 09:20] MED LIST changes: +LIDO GARGLE 30 ML BOTTLE ONE; -SODIUM CHLORIDE FLUSH 0.9% 10 ML SYRINGE IVP ONE; -ceFAZolin 2 GM/50 ML 50 ML IV ONE
[2019-08-27] MEDS ORDERED: fentaNYL 250 MCG/5 ML VIAL IVP ONE (09:21)
[2019-08-27] MEDS ORDERED: MIDAZOLAM 2 MG/2 ML VIAL IVP ONE (09:21)
[2019-08-27] MEDS ORDERED: LACTATED RINGERS 1,000 ML IV ONE ×2 (09:51→12:15)
[2019-08-27] MEDS ORDERED: BENZOCAINE/TETRACAINE/BUTAMBEN 20 GM TOP ONE (11:23)
[2019-08-27] MEDS ORDERED: LIDO GARGLE 30 ML BOTTLE PO ONE (11:23)
[2019-08-27 13:29] VITALS: BP 103/64
== END 2019-08-27 09:21 | disposition home or self-care (01) ==
LOC: SDS 09:20
PROVIDERS: ATTEND Surgery
PROC: 0DB78ZX Excision of Stomach, Pylorus, Via Natural or Artificial Opening Endoscopic, Diagnostic (ICD-10-PCS; principal; 2019-08-27 10:45)
PROC: 0DJD8ZZ Inspection of Lower Intestinal Tract, Via Natural or Artificial Opening Endoscopic (ICD-10-PCS; 2019-08-27 10:45)
DX: D50.9 Iron deficiency anemia, unspecified (principal); R10.9 Unspecified abdominal pain; K31.89 Other diseases of stomach and duodenum; K29.70 Gastritis, unspecified, without bleeding; K64.8 Other hemorrhoids; M54.9 Dorsalgia, unspecified; Z79.891 Long term (current) use of opiate analgesic; I10 Essential (primary) hypertension; E88.81 Metabolic syndrome and other insulin resistance; E28.2 Polycystic ovarian syndrome; Z87.891 Personal history of nicotine dependence
CPT/HCPCS: 43239; 45378; 87081; A9270; J3010; J7120

== ENCOUNTER 2019-08-31 13:00 | Outpatient (CLI) | payer BC ==
[2019-08-31 13:17] LABS: BASOPHILS # (AUTO) 0.1 10^3/uL (0.0-0.1); BASOPHILS % (AUTO) 0.6 %; EOSINOPHILS # (AUTO) 0.2 10^3/uL (0.0-0.7); EOSINOPHILS % (AUTO) 2.5 %; LYMPHOCYTES % (AUTO) 24.8 %; MEAN CORPUSCULAR HGB CONC 28.5 g/dL (32.0-36.0); MEAN CORPUSCULAR VOLUME 80.7 fL (81.0-99.0); MEAN PLATELET VOLUME 10.8 fL (7.9-10.8); MONOCYTES # (AUTO) 0.5 10^3/uL (0.0-1.0); MONOCYTES % (AUTO) 6.7 %; NEUTROPHILS # (AUTO) 5.2 10^3/uL (1.5-6.6); NEUTROPHILS % (AUTO) 64.8 %; PLT - PLATELET COUNT 230 10^3/uL (130-450); RED BLOOD COUNT 2.96 10^6/uL (4.20-5.40); RED CELL DISTRIBUTION WIDTH 15.4 % (12.0-15.0); WHITE BLOOD COUNT 8.1 x10^3/uL (4.8-10.8)
[2019-08-31 13:26] LABS: HGB - HEMOGLOBIN 6.8 g/dL (12.0-16.0)
[2019-08-31 13:40] LABS: % IRON SATURATION 3 % (20-50); IRON 13 ug/dL (28-170); TOTAL IRON BINDING CAPACITY 475 ug/dL (250-450); TRANSFERRIN 339 mg/dL (192-382)
[2019-08-31 14:53] LABS: PLATELET ESTIMATE, MANUAL NORMAL (130-450,000) (NORMAL); PLATELET MORPHOLOGY NORMAL APPEARANCE (NORMAL)
== END 2019-08-31 13:01 | disposition home or self-care (01) ==
LOC: LAB 13:00
PROVIDERS: ATTEND Physician Assistant Medical
DX: D50.9 Iron deficiency anemia, unspecified (principal)
CPT/HCPCS: 36415; 82728; 83540; 84466; 85025

== ENCOUNTER 2019-10-29 15:58 | Outpatient (CLI) | payer BC ==
--- NOTE | 2019-10-30 10:44 | Mammography Report ---
Reason: ROUTINE MAMMO Procedure Date: 10/29/2019 Accession Number: [id number] / [id number] Procedure: [facility] - Screening Mammo w/Kyle CPT Code: Final Report FULL RESULT: EXAM: Screening Mammo w/Kyle DATE: 10/29/2019 4:23 PM CLINICAL HISTORY: Screening encounter. History of early menses. TECHNIQUE: (B) - Bilateral CC, laterally exaggerated CC, MLO views were obtained. COMPARISON: 09/08/2018 through 04/20/2010. PARENCHYMAL PATTERN: (A) - The breast(s) demonstrate(s) scattered fibroglandular densities. FINDINGS: Apparent interval increase in a focal asymmetry in the upper outer right breast 2 to 3 cm from the nipple as seen on 3-D cc image 42 and 3-D MLO image 37 requires additional spot views and potentially ultrasound for clarification. There are no suspicious masses, calcifications, or areas of distortion. IMPRESSION: Incomplete examination. BI-RADS category 0. RECOMMENDATION: ([facility]) - Additional views using both Mammography and Ultrasound recommended. Right breast upper outer quadrant 2 to 3 cm from the nipple. BI-RADS CATEGORY: (0) - Incomplete Examination - need additional evaluation. STANDARD QUALIFYING STATEMENTS: 1. This examination was not reviewed with the aid of Computer-Aided Detection (CAD). 2. A negative or benign imaging report should not preclude biopsy if clinically suspicious findings are present. 3. Dense breasts may obscure an underlying neoplasm. 4. This examination was reviewed with the aid of 3D breast imaging (tomosynthesis).
== END 2019-10-29 15:59 | disposition home or self-care (01) ==
LOC: DI 15:58
DX: Z12.31 Encounter for screening mammogram for malignant neoplasm of breast (principal); R92.8 Other abnormal and inconclusive findings on diagnostic imaging of breast
CPT/HCPCS: 77063; 77067

== ENCOUNTER 2019-11-04 08:00 | Outpatient (CLI) | payer BC ==
[2019-11-04 12:41] LABS: BASOPHILS # (AUTO) 0.1 10^3/uL (0.0-0.1); BASOPHILS % (AUTO) 0.8 %; EOSINOPHILS # (AUTO) 0.2 10^3/uL (0.0-0.7); EOSINOPHILS % (AUTO) 2.5 %; HGB - HEMOGLOBIN 10.3 g/dL (12.0-16.0); LYMPHOCYTES # (AUTO) 1.8 10^3/uL (1.5-3.5); LYMPHOCYTES % (AUTO) 24.1 %; MEAN CORPUSCULAR HEMOGLOBIN 27.6 pg (27.0-31.0); MEAN CORPUSCULAR HGB CONC 29.8 g/dL (32.0-36.0); MEAN CORPUSCULAR VOLUME 92.8 fL (81.0-99.0); MEAN PLATELET VOLUME 12.1 fL (7.9-10.8); MONOCYTES # (AUTO) 0.6 10^3/uL (0.0-1.0); MONOCYTES % (AUTO) 8.3 %; NEUTROPHILS # (AUTO) 4.6 10^3/uL (1.5-6.6); NEUTROPHILS % (AUTO) 63.3 %; PLT - PLATELET COUNT 223 10^3/uL (130-450); RED BLOOD COUNT 3.73 10^6/uL (4.20-5.40); RED CELL DISTRIBUTION WIDTH 19.4 % (12.0-15.0); WHITE BLOOD COUNT 7.3 x10^3/uL (4.8-10.8)
== END 2019-11-04 23:59 | disposition home or self-care (01) ==
LOC: LAB.WCP 08:00
PROVIDERS: ATTEND Nurse Practitioner Family
DX: D64.9 Anemia, unspecified (principal)
CPT/HCPCS: 36415; 85025

== ENCOUNTER 2019-11-05 16:37 | Outpatient (CLI) | payer BC ==
[2019-11-05] MEDS ORDERED: IOVERSOL 320 100 ML VIAL IVP ONE ×2 (16:43→18:23)
[2019-11-05] MEDS ORDERED: IOVERSOL 320 50 ML VIAL ONE (16:43)
[2019-11-05 16:59] LABS: CREATININE 0.8 mg/dL (0.4-1.0)
[2019-11-05] MEDS ORDERED: IOVERSOL 320 50 ML VIAL PO ONE (18:23)
--- NOTE | 2019-11-06 14:30 | CT Report ---
Reason: HX OF MALIGNANT MELANOMA Procedure Date: 11/05/2019 Accession Number: [id number] / [id number] Procedure: CT - Abdomen/Pelvis W CPT Code: Final Report FULL RESULT: EXAM: CT ABDOMEN AND PELVIS EXAM DATE: 11/05/2019 06:21 PM. CLINICAL HISTORY: History of malignant melanoma. Mass seen on camera in proximal colon. COMPARISONS: ABDOMEN W/ 02/09/2019 9:29 AM ABDOMEN LIMITED 01/26/2019 9:03 PM ABDOMEN/PELVIS W/ 08/07/2017 3:05 PM. TECHNIQUE: Routine helical CT imaging was performed through the abdomen and pelvis. IV contrast: OPTI 320 100 mL. Enteric contrast: Positive. Reconstructions: Coronal and sagittal. In accordance with CT protocol optimization, one or more of the following dose reduction techniques were utilized for this exam: automated exposure control, adjustment of mA and/or KV based on patient size, or use of iterative reconstructive technique. FINDINGS: Lung Bases: Lung bases are clear. Included portions of the heart are unremarkable. Mild thickening of distal esophagus. Liver: Normal. No masses. Gallbladder/Bile Ducts: Gallbladder is contracted. No distinct gallbladder masses. No biliary ductal dilatation. Spleen: Normal. Pancreas: Normal. Adrenal Glands: Normal. Kidneys: Kidneys enhance symmetrically. No hydronephrosis. No nephrolithiasis. No CT evidence of pyelonephritis. Posterior mid left renal 11 mm low-attenuation lesion, stable. Peritoneal Cavity/Bowel: Stomach is mild to moderately distended. No small bowel obstruction or small bowel wall thickening. Small fatty umbilical hernia. No evidence of small bowel obstruction. No mesenteric or omental masses. Terminal ileum contains small volume of stool and is otherwise unremarkable. Moderate volume of stool throughout the colon. No diverticulitis. There may be an area of slight thickening along the anterior aspect of the proximal ascending colon/cecum seen on axial image 57 series 3, although this is not definitive and may be represent a component of prominent stool. No other colonic masses or focal colonic wall thickening is identified. Subcentimeter mesenteric lymph nodes are seen, the largest measuring 4-5 mm. No free air. No intraabdominal fluid collections. Appendix is absent. Pelvic Organs: Urinary bladder is mildly distended and unremarkable. Uterus is absent. No pelvic adenopathy. No pelvic free fluid. Vasculature: Vascular calcifications. No aneurysm. No occlusion. Bones: Grade 1 anterolisthesis of L4 on L5. Mild degenerative changes of the lumbar spine greatest at L5-S1. Lumbar facet arthropathy. Mild degenerative changes of both hip joints. Other: No intramuscular or subcutaneous masses are identified. IMPRESSION: 1. Moderate volume of stool in the colon. Mild focal region of colonic thickening involving the proximal ascending colon/cecum versus focally prominent stool burden. No other colonic masses or colonic wall thickening is identified noting that due to the volume of stool a well delineated s region of colonic thickening or intraluminal mass may be obscured. 2. No enlarged abdominal or pelvic lymph nodes. 3. Status post appendectomy. 4. Contracted gallbladder. No biliary ductal dilatation. [facility]
== END 2019-11-05 16:38 | disposition home or self-care (01) ==
LOC: LAB 16:37 → DI 16:38
PROVIDERS: ATTEND Internal Medicine Hematology & Oncology
DX: D50.9 Iron deficiency anemia, unspecified (principal); Z85.820 Personal history of malignant melanoma of skin; Z90.49 Acquired absence of other specified parts of digestive tract
CPT/HCPCS: 36415; 74177; 82565

== ENCOUNTER 2019-11-28 11:37 | Emergency (ER) | payer BC ==
[2019-11-28 12:45] LABS: BILIRUBIN,URINE NEGATIVE (NEGATIVE); GLUCOSE, URINE (UA) NEGATIVE (NEGATIVE); KETONES,URINE (UA) NEGATIVE (NEGATIVE); LEUKOCYTE ESTERASE, URINE SMALL (NEGATIVE); NITRITE,URINE NEGATIVE (NEGATIVE); OCCULT BLOOD,URINE NEGATIVE (NEGATIVE); PH,URINE 5.5 PH (5.0-7.5); PROTEIN,URINE NEGATIVE (NEGATIVE); UROBILINOGEN,URINE 0.2 (NORMAL) E.U./dL (NORMAL)
[2019-11-28 12:56] LABS: CLARITY,URINE CLEAR (CLEAR)
[2019-11-28 13:00] LABS: BACTERIA,URINE Few /HPF (None Seen); RBC,URINE 0-5 /HPF (0-5); SQUAMOUS EPITHELIAL CELL,UR FEW Squamous (<= Few)
[2019-11-28] MEDS ORDERED: cephALEXin 250 MG CAPSULE PO STA (13:28)
--- NOTE | 2019-11-28 13:31 | ED Physician Documentation ---
PD HPI FEMALE - Stated complaint Stated Complaint: FEMALE - Chief complaint Chief Complaint: UTI - History obtained from History obtained from: Patient - History of Present Illness Timing - onset: Last night Timing - details: Gradual onset Pain level max: 3 Pain level max: 3 Associated symptoms: Dysuria, Urinary frequency. No: Fever Contributing factors: No: Similar symptoms before: Diagnosis (UTI) Recently seen: Not recently seen Review of Systems Constitutional: denies: Fever GI: denies: Abdominal Pain, Vomiting : reports: Dysuria, Frequency, Hesitancy Musculoskeletal: denies: Back pain PD PAST MEDICAL HISTORY - Past Medical History Past Medical History: Yes Cardiovascular: Hypertension, High cholesterol Respiratory: None Neuro: None Endocrine/Autoimmune: Other GI: GERD, Hiatal hernia, Colon polyps BRANCH SPECIALIST: None : None, Other HEENT: Chronic vision loss, Chronic sinusitis Psych: Anxiety, Panic attacks Musculoskeletal: Osteoarthritis, Fibromyalgia, Chronic back pain Derm: Other Other Past Medical History: melanoma - Past Surgical History Past Surgical History: Yes General: Appendectomy, Colonoscopy, EGD Ortho: Spine surgery, Other /BRANCH SPECIALIST: Hysterectomy, Oophrectomy Derm: Skin cancer surgery - Present Medications Home Medications: Ambulatory Orders Medication Instructions Recorded Confirmed ALPRAZolam [Xanax] 0.125 mg PO DAILY PM PRN 07/14/13 10/27/19 Cyclobenzaprine [Flexeril] 10 mg PO TID PRN 07/14/13 10/27/19 DULoxetine [Cymbalta] 30 mg PO DAILY 07/14/13 10/27/19 Hydrochlorothiazide 25 mg PO DAILY 07/14/13 10/27/19 Liothyronine Sodium [Cytomel] 12.5 mcg PO DAILY 07/14/13 10/27/19 Metformin HCl [Fortamet] 1,000 mg PO BID 07/14/13 10/27/19 Metoprolol Succinate [Toprol Xl] 25 mg PO ONCE 07/14/13 10/27/19 Simvastatin [Zocor] 40 mg PO QPM 07/14/13 10/27/19 lisinopriL [Zestril] 5 mg PO DAILY 07/14/13 10/27/19 HYDROcodone/ACET 7.5/325 [[place] 1 - 2 tab PO TID PRN 06/27/17 10/27/19 7.5/325] estradioL [Estradiol] 1 mg PO DAILY 06/27/17 10/27/19 Levothyroxine [Synthroid] 75 mcg PO QDAC 11/12/17 10/27/[address] [Voltaren] 50 mg PO BID 05/13/18 10/27/19 Omeprazole [PriLOSEC] 1 cap PO BID 05/13/18 10/27/19 Metoclopramide [Reglan] 10 mg PO QID 05/19/19 10/27/19 Sucralfate [Carafate] 1 gm PO TID 08/26/19 10/27/19 Amox/Clav 875/125 [Augmentin] 1 each PO Q12H 11/06/19 11/06/19 Cephalexin [Keflex] 500 mg PO Q6H #20 capsule 11/28/19 - Allergies Allergies/Adverse Reactions: Allergies Allergy/AdvReac Type Severity Reaction Status Date / Time Sulfa (Sulfonamide Allergy Unknown Hives Verified 10/27/19 10:32 Antibiotics) nitrofurantoin Allergy Edema Verified 10/27/19 10:32 oxybutynin Allergy Hives Verified 10/27/19 10:32 diazepam AdvReac Mild Rash Verified 10/27/19 10:32 prednisone AdvReac Unknown Verified 10/27/19 10:32 - Social History Does the pt smoke?: No Smoking Status: Never smoker Does the pt drink ETOH?: No Does the pt have substance abuse?: No - Immunizations Immunizations are current?: Yes - POLST Patient has POLST: No PD ED PE NORMAL - Vitals Vital signs reviewed: Yes - General General: Alert and oriented X 3, No acute distress - HEENT HEENT: Moist mucous membranes - Neck Neck: Supple, no meningeal sign - Cardiac Cardiac: RRR - Respiratory Respiratory: No respiratory distress, Clear bilaterally - Back Back: No CVA TTP - Derm Derm: Warm and dry - Neuro Neuro: Alert and oriented X 3 Results - Vitals Vitals: Vital Signs - 24 hr 11/28/19 11:48 Temperature 36.9 C Heart Rate 85 Respiratory 14 Rate Blood Pressure 127/74 O2 Saturation 98 Oxygen O2 Source Room air - Labs Labs: Laboratory Tests 11/28/19 12:03 Urine Color YELLOW Urine Clarity CLEAR Urine pH 5.5 Ur Specific [place] 1.025 Urine Protein NEGATIVE Urine Glucose (UA) NEGATIVE Urine Ketones NEGATIVE Urine Occult Blood NEGATIVE Urine Nitrite NEGATIVE Urine Bilirubin NEGATIVE Urine Urobilinogen 0.2 (NORMAL) Ur Leukocyte Esterase SMALL H Urine RBC 0-5 Urine WBC 11-25 H Ur Squamous Epith Cells FEW Squamous Urine Bacteria Few Ur Microscopic Review INDICATED Urine Culture Comments INDICATED PD MEDICAL DECISION MAKING - ED course Complexity details: reviewed results, considered differential, d/w patient ED course: Patient with a UTI. Will place on Keflex. She is well-appearing, nontoxic. No evidence of pyelonephritis. Patient counseled regarding signs and symptoms for which I believe and urgent re-evaluation would be necessary. Patient with good understanding of and agreement to plan and is comfortable going home at this time This document was made in part using voice recognition software. While efforts are made to proofread this document, sound alike and grammatical errors may occur. Departure - Departure Disposition: 01 Home, Self Care Clinical Impression: Urinary tract infection Qualifiers: Urinary tract infection type: acute cystitis Hematuria presence: without hematuria Qualified Code(s): N30.00 - Acute cystitis without hematuria Condition: Good Instructions: ED UTI Cystitis Female Follow-Up: Suyapa Omer PA-C [Primary Care Provider] - As Needed Prescriptions: Cephalexin [Keflex] 500 mg PO Q6H #20 capsule Comments: Your prescription was sent to [facility] in [place]. Take all antibiotics until gone. Return if you worsen.
[2019-11-28 13:39] VITALS: BP 119/62
== END 2019-11-28 13:39 | disposition home or self-care (01) ==
LOC: ED 11:37
DX: N30.00 Acute cystitis without hematuria (principal); I10 Essential (primary) hypertension
CPT/HCPCS: 81001; 87086; 87181; 99283; 99284; A9270; 81003

== ENCOUNTER 2019-12-02 14:01 | Outpatient (CLI) | payer BC ==
--- NOTE | 2019-12-02 16:10 | Mammography Report ---
Reason: ABN MAMMO - SPEC VIEWS RT Procedure Date: 12/02/2019 Accession Number: [id number] / [id number] Procedure: ADRIAN - Diag Special Views Dig RT CPT Code: Final Report FULL RESULT: EXAM: Diag Special Views Dig RT, Breast Unilateral Limited DATE: 12/02/2019 2:56 PM CLINICAL HISTORY: Follow-up right breast upper outer quadrant focal asymmetry 2 to 3 cm from the nipple. 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 COMPARISON: 10/29/2019, 09/08/2018, 09/04/2017, 07/31/2016, 08/22/2015 and 06/04/2014 MAMMOGRAM: TECHNIQUE: (R) - Right additional views were obtained. FINDINGS: A 4 cm nodular density persists in the right upper outer quadrant approximately 3 cm from the nipple. A few punctate nonspecific microcalcifications are present. RIGHT BREAST ULTRASOUND: TECHNIQUE: Real time scanning by the fruit bar maker with saved static images reviewed. FINDINGS: In the retroareolar right breast there is a 5 x 2 x 4 mm nodule likely a dilated duct correlating with the mammographic finding. A few focal punctate echoes are seen within which may represent debris or potentially the calcifications seen mammographically. IMPRESSION: Probably Benign. BI-RADS category 3. RECOMMENDATION: (6MOS) - Recommend 6 month follow-up exam. Recommend unilateral right mammogram with magnification views and right breast ultrasound in 6 months. BI-RADS CATEGORY: (3) - Probably Benign. STANDARD QUALIFYING STATEMENTS: 1. This examination was not reviewed with the aid of Computer-Aided Detection (CAD). 2. A negative or benign imaging report should not preclude biopsy if clinically suspicious findings are present. 3. Dense breasts may obscure an underlying neoplasm. 4. This examination was reviewed with the aid of 3D breast imaging (tomosynthesis).
--- NOTE | 2019-12-03 13:43 | Ultrasound Report ---
Reason: RIGHT BREAST Procedure Date: 12/02/2019 Accession Number: [id number] / [id number] Procedure: US - Breast Unilateral Limited CPT Code: Final Report FULL RESULT: EXAM: Diag Special Views Dig RT, Breast Unilateral Limited DATE: 12/02/2019 2:56 PM CLINICAL HISTORY: Follow-up right breast upper outer quadrant focal asymmetry 2 to 3 cm from the nipple. 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 COMPARISON: 10/29/2019, 09/08/2018, 09/04/2017, 07/31/2016, 08/22/2015 and 06/04/2014 MAMMOGRAM: TECHNIQUE: (R) - Right additional views were obtained. FINDINGS: A 4 cm nodular density persists in the right upper outer quadrant approximately 3 cm from the nipple. A few punctate nonspecific microcalcifications are present. RIGHT BREAST ULTRASOUND: TECHNIQUE: Real time scanning by the cartridge gauger with saved static images reviewed. FINDINGS: In the retroareolar right breast there is a 5 x 2 x 4 mm nodule likely a dilated duct correlating with the mammographic finding. A few focal punctate echoes are seen within which may represent debris or potentially the calcifications seen mammographically. IMPRESSION: Probably Benign. BI-RADS category 3. RECOMMENDATION: (6MOS) - Recommend 6 month follow-up exam. Recommend unilateral right mammogram with magnification views and right breast ultrasound in 6 months. BI-RADS CATEGORY: (3) - Probably Benign. STANDARD QUALIFYING STATEMENTS: 1. This examination was not reviewed with the aid of Computer-Aided Detection (CAD). 2. A negative or benign imaging report should not preclude biopsy if clinically suspicious findings are present. 3. Dense breasts may obscure an underlying neoplasm. 4. This examination was reviewed with the aid of 3D breast imaging (tomosynthesis).
== END 2019-12-02 14:02 | disposition home or self-care (01) ==
LOC: DI 14:01
PROVIDERS: ATTEND Physician Assistant Medical
DX: N63.11 Unspecified lump in the right breast, upper outer quadrant (principal)
CPT/HCPCS: 76642

== ENCOUNTER 2020-07-20 14:38 | Outpatient (CLI) | payer BC | END 2020-07-20 14:39 | disposition home or self-care (01) | LOC: COV 14:38 | PROVIDERS: ATTEND Family Medicine | DX: R50.9 Fever, unspecified (principal); M79.10 Myalgia, unspecified site; R53.83 Other fatigue; R09.81 Nasal congestion; Z20.828 Contact with and (suspected) exposure to other viral communicable diseases ==

== ENCOUNTER 2020-07-22 09:55 | Emergency (ER) | payer BC ==
[2020-07-22 11:02] LABS: BASOPHILS # (AUTO) 0.1 10^3/uL (0.0-0.1); BASOPHILS % (AUTO) 0.9 %; EOSINOPHILS # (AUTO) 0.3 10^3/uL (0.0-0.7); EOSINOPHILS % (AUTO) 3.9 %; HGB - HEMOGLOBIN 13.7 g/dL (12.0-16.0); LYMPHOCYTES # (AUTO) 1.4 10^3/uL (1.5-3.5); LYMPHOCYTES % (AUTO) 19.9 %; MEAN CORPUSCULAR HEMOGLOBIN 30.4 pg (27.0-31.0); MEAN CORPUSCULAR HGB CONC 32.9 g/dL (32.0-36.0); MEAN CORPUSCULAR VOLUME 92.7 fL (81.0-99.0); MEAN PLATELET VOLUME 12.1 fL (7.9-10.8); MONOCYTES # (AUTO) 0.6 10^3/uL (0.0-1.0); MONOCYTES % (AUTO) 8.9 %; NEUTROPHILS # (AUTO) 4.6 10^3/uL (1.5-6.6); PLT - PLATELET COUNT 190 10^3/uL (130-450); RED CELL DISTRIBUTION WIDTH 12.2 % (12.0-15.0)
[2020-07-22 11:18] LABS: ALBUMIN 4.1 g/dL (3.2-5.5); ALBUMIN/GLOBULIN RATIO 1.5 (1.0-2.2); BILIRUBIN,TOTAL 0.5 mg/dL (0.2-1.0); CALCIUM 9.7 mg/dL (8.5-10.3); CREATININE 0.6 mg/dL (0.4-1.0); TOTAL PROTEIN 6.8 g/dL (6.7-8.2)
[2020-07-22 11:27] LABS: BILIRUBIN,URINE NEGATIVE (NEGATIVE); GLUCOSE, URINE (UA) NEGATIVE (NEGATIVE); KETONES,URINE (UA) NEGATIVE (NEGATIVE); LEUKOCYTE ESTERASE, URINE NEGATIVE (NEGATIVE); NITRITE,URINE NEGATIVE (NEGATIVE); OCCULT BLOOD,URINE NEGATIVE (NEGATIVE); PH,URINE 7.5 PH (5.0-7.5); PROTEIN,URINE NEGATIVE (NEGATIVE); UROBILINOGEN,URINE 0.2 (NORMAL) E.U./dL (NORMAL)
[2020-07-22 11:29] LABS: CLARITY,URINE CLEAR (CLEAR)
[2020-07-22 11:38] VITALS: BP 140/85
--- NOTE | 2020-07-22 11:41 | ED Physician Documentation ---
History of Present Illness - Stated complaint Stated Complaint: FEVER/RASH - Chief complaint Chief Complaint: Fever - History obtained from History obtained from: Patient - History of Present Illness Timing: How many days ago (3) - Additonal information Additional information: 55-year-old female has developed a pain and a small rash to the left side of her chest and back.She is currently undergoing chemotherapy with biological for melanoma. She has responded to treatment. She did have some colitis after her first several injections and her dose has been reduced and she has been tolerating this. She has no other specific complaints.The indicates that the rash originally had some little teeny tiny blisters on it and now has crusted over. Review of Systems Constitutional: reports: Fever (Day 1 the patient had a fever up to 101 and this resolved by morning.) Eyes: denies: Decreased vision Ears: denies: Ear pain Nose: denies: Rhinorrhea / runny nose, Congestion Throat: denies: Sore throat Cardiac: denies: Chest pain / pressure, Palpitations Respiratory: denies: Dyspnea, Cough GI: denies: Abdominal Pain, Nausea, Vomiting : denies: Dysuria, Frequency Skin: reports: Rash Musculoskeletal: denies: Neck pain, Back pain, Extremity pain PD PAST MEDICAL HISTORY - Past Medical History Past Medical History: Yes Cardiovascular: Hypertension, High cholesterol Respiratory: None Neuro: None Endocrine/Autoimmune: Other GI: GERD, Hiatal hernia, Colon polyps TRAUMA COORDINATOR: None : None, Other HEENT: Chronic vision loss, Chronic sinusitis Psych: Anxiety, Panic attacks Musculoskeletal: Osteoarthritis, Fibromyalgia, Chronic back pain Derm: Other - Past Surgical History Past Surgical History: Yes General: Appendectomy, Colonoscopy, EGD Ortho: Spine surgery, Other /TRAUMA COORDINATOR: Hysterectomy, Oophrectomy Derm: Skin cancer surgery - Present Medications Home Medications: Ambulatory Orders Medication Instructions Recorded Confirmed ALPRAZolam [Xanax] 0.125 mg PO DAILY PM PRN 07/14/13 06/28/20 Cyclobenzaprine [Flexeril] 10 mg PO TID PRN 07/14/13 06/28/20 DULoxetine [Cymbalta] 30 mg PO DAILY 07/14/13 06/28/20 Hydrochlorothiazide 25 mg PO DAILY 07/14/13 06/28/20 Liothyronine Sodium [Cytomel] 12.5 mcg PO DAILY 07/14/13 06/28/20 Metformin HCl [Fortamet] 1,000 mg PO BID 07/14/13 06/28/20 Metoprolol Succinate [Toprol Xl] 25 mg PO ONCE 07/14/13 06/28/20 Simvastatin [Zocor] 40 mg PO QPM 07/14/13 06/28/20 lisinopriL [Zestril] 5 mg PO DAILY 07/14/13 06/28/20 HYDROcodone/ACET 7.5/325 [[place] 1 - 2 tab PO TID PRN 06/27/17 06/28/20 7.5/325] estradioL [Estradiol] 1 mg PO DAILY 06/27/17 06/28/20 Levothyroxine [Synthroid] 75 mcg PO QDAC 11/12/17 06/28/[address] [Voltaren] 50 mg PO BID 05/13/18 06/28/20 Omeprazole [PriLOSEC] 1 cap PO BID 05/13/18 06/28/20 Metoclopramide [Reglan] 10 mg PO QID 05/19/19 06/28/20 Valacyclovir HCl [Valacyclovir] 1,000 mg PO TID #21 tablet 07/22/20 - Allergies Allergies/Adverse Reactions: Allergies Allergy/AdvReac Type Severity Reaction Status Date / Time Sulfa (Sulfonamide Allergy Unknown Hives Verified 07/22/20 10:04 Antibiotics) nitrofurantoin Allergy Edema Verified 07/22/20 10:04 oxybutynin Allergy Hives Verified 07/22/20 10:04 diazepam AdvReac Mild Rash Verified 07/22/20 10:04 prednisone AdvReac Unknown Verified 06/28/20 09:08 - Social History Does the pt smoke?: No Smoking Status: Never smoker Does the pt drink ETOH?: No Does the pt have substance abuse?: No - Immunizations Immunizations are current?: Yes - POLST Patient has POLST: No PD ED PE NORMAL - General General: Alert and oriented X 3, No acute distress, Well developed/nourished - HEENT HEENT: Atraumatic, PERRL, EOMI - Neck Neck: Supple, no meningeal sign, No bony TTP - Cardiac Cardiac: RRR, No murmur - Respiratory Respiratory: No respiratory distress, Clear bilaterally - Abdomen Abdomen: Soft, Non tender - Back Back: No CVA TTP, No spinal TTP - Derm Derm: Normal color, Warm and dry, Other (There are groupings of vesicles 4 of them along the lateral margin of the left breast 4 of them along the back in the distribution of the dermatome.) - Extremities Extremities: No deformity, No edema - Neuro Neuro: Alert and oriented X 3, rn orthopedic 2-12 intact, No motor deficit, No sensory deficit, Normal speech Eye Opening: Spontaneous Motor: Obeys Commands Verbal: Oriented GCS Score: 15 - Psych Psych: Normal mood, Normal affect Results - Vitals Vitals: Vital Signs - 24 hr 07/22/20 07/22/20 07/22/20 10:04 10:50 11:07 Temperature 37.3 C 37.3 C Heart Rate 103 H 103 H 83 Respiratory 16 16 20 Rate Blood Pressure 169/82 H 169/82 H 140/85 H O2 Saturation 96 96 99 07/22/20 11:30 Temperature 37.2 C Heart Rate 86 Respiratory 22 Rate Blood Pressure 140/85 H O2 Saturation 98 Oxygen O2 Source Room air - Labs Labs: Laboratory Tests 07/22/20 07/22/20 07/22/20 10:37 10:37 10:37 WBC 7.0 RBC 4.50 Hgb 13.7 Hct 41.7 MCV 92.7 MCH 30.4 MCHC 32.9 RDW 12.2 Plt Count 190 MPV 12.1 H Neut # (Auto) 4.6 Lymph # (Auto) 1.4 L [place] # (Auto) 0.6 Eos # (Auto) 0.3 Baso # (Auto) 0.1 Absolute Nucleated RBC 0.00 Nucleated RBC % 0.0 Sodium 137 Potassium 3.8 Chloride 101 Carbon Dioxide 22 Anion Gap 14.0 H BUN 12 Creatinine 0.6 Estimated GFR (MDRD) 104 Glucose 114 H Lactic Acid 1.9 Calcium 9.7 Total Bilirubin 0.5 AST 31 ALT 30 Alkaline Phosphatase 31 L Total Protein 6.8 Albumin 4.1 Globulin 2.7 Albumin/Globulin Ratio 1.5 Lipase 24 Urine Color Urine Clarity Urine pH Ur Specific [place] Urine Protein Urine Glucose (UA) Urine Ketones Urine Occult Blood Urine Nitrite Urine Bilirubin Urine Urobilinogen Ur Leukocyte Esterase Ur Microscopic Review Urine Culture Comments 07/22/20 11:15 WBC RBC Hgb Hct MCV MCH MCHC RDW Plt Count MPV Neut # (Auto) Lymph # (Auto) [place] # (Auto) Eos # (Auto) Baso # (Auto) Absolute Nucleated RBC Nucleated RBC % Sodium Potassium Chloride Carbon Dioxide Anion Gap BUN Creatinine Estimated GFR (MDRD) Glucose Lactic Acid Calcium Total Bilirubin AST ALT Alkaline Phosphatase Total Protein Albumin Globulin Albumin/Globulin Ratio Lipase Urine Color YELLOW Urine Clarity CLEAR Urine pH 7.5 Ur Specific [place] 1.020 Urine Protein NEGATIVE Urine Glucose (UA) NEGATIVE Urine Ketones NEGATIVE Urine Occult Blood NEGATIVE Urine Nitrite NEGATIVE Urine Bilirubin NEGATIVE Urine Urobilinogen 0.2 (NORMAL) Ur Leukocyte Esterase NEGATIVE Ur Microscopic Review NOT INDICATED Urine Culture Comments NOT INDICATED PD MEDICAL DECISION MAKING - ED course Complexity details: reviewed old records, reviewed results, re-evaluated patient, considered differential, d/w patient, d/w computing consultant (Case discussed with oncologist at the [facility] clinic who recommended treatment with valacyclovir for shingles and without other signs or symptoms of sepsis there should not be excessive concern.) ED course: 55-year-old female with a rash was on a biological for melanoma appears to have shingles and she does not appear to have a bad case. She is placed onto valacyclovir. Departure - Departure Disposition: 01 Home, Self Care Clinical Impression: Shingles Qualifiers: Herpes zoster complications: without complications Qualified Code(s): B02.9 - Zoster without complications Condition: Stable Instructions: ED Shingles Follow-Up: Suyapa Omer PA-C [Primary Care Provider] - Prescriptions: Valacyclovir HCl [Valacyclovir] 1,000 mg PO TID #21 tablet Discharge Date/Time: 07/22/20 11:47
== END 2020-07-22 11:47 | disposition home or self-care (01) ==
LOC: ED 09:55
DX: B02.9 Zoster without complications (principal); C43.9 Malignant melanoma of skin, unspecified; I10 Essential (primary) hypertension
CPT/HCPCS: 36415; 80053; 81001; 81003; 83605; 83690; 85025; 87040; 87086; 99283; 99284

== ENCOUNTER 2020-07-29 09:27 | Outpatient (CLI) | payer BC ==
--- NOTE | 2020-07-29 12:23 | Ultrasound Report ---
PROCEDURE: Head or Neck Soft Tissue INDICATIONS: THYROID CYST TECHNIQUE: Real-time scanning was performed of the thyroid gland, with image documentation. COMPARISON: 08/21/2017 FINDINGS: Right: Thyroid lobe measures 6.0 x 1.8 x 1.5 cm, and is homogeneous in echotexture. Left: Thyroid lobe measures 5.0 x 1.3 x 1.7 cm, and is homogenous in echotexture. Isthmus: 4 mm thick. Multiple cysts of varying sizes present in the right thyroid lobe, the 2 largest have slightly increa sed compared to the prior study and the largest now measures 1.0 x 0.8 x 0.9 cm, previously 0.6 x 0.4 x 0.4 cm. No development of suspicious features. Posterior to the right thyroid lobe, there is a hyp oechoic ovoid nodule measuring 1.0 x 0.6 x 0.7 cm with minimal linear internal echogenicity and no in ternal vascularity. The left thyroid lobe demonstrates multiple very small solid nodules, the largest is an ovoid spongif orm nodule measuring 1.1 x 0.6 x 0.8 cm, increased compared to 0.8 x 0.4 x 0.7 cm in the mid thyroid. There is a stable solid 7 mm nodule in the medial mid left thyroid lobe. No suspicious adenopathy in either cervical chain. IMPRESSION: 1. Mild enlargement of the spongiform left thyroid nodule. Follow-up in one year is recommended. 2. Otherwise benign appearing cysts and solid thyroid nodules. 3. Possible right parathyroid gland identified. Correlate with lab values to determine clinical signi ficance. ACR TI-RADS definitions and recommendations: TI-RADS 1 (benign): 0 points. FNA not needed. TI-RADS 2 (not suspicious): 2 points. FNA not needed. TI-RADS 3 (mildly suspicious): 3 points. ? FNA if 2.5 cm or larger, follow up if 1.5 cm or larger (at 1, 3, and 5 years). TI-RADS 4 (moderately suspicious): 4-6 points. ? FNA if 1.5 cm or larger, follow up if 1 cm or larger (at 1, 2, 3, and 5 years). TI-RADS 5 (highly suspicious): 7 points or more. ? FNA if 1 cm or larger, follow up if 0.5 cm or larger (every year for 5 years). Reviewed by: Gisela Armijo MD on 07/29/2020 12:22 PM PDT Approved by: Gisela Armijo MD on 07/29/2020 12:22 PM PDT Station ID: [id number]
== END 2020-07-29 09:28 | disposition home or self-care (01) ==
LOC: DI 09:27
PROVIDERS: ATTEND Physician Assistant Medical
DX: E04.1 Nontoxic single thyroid nodule (principal)
CPT/HCPCS: 76536

== ENCOUNTER 2020-08-02 10:07 | Outpatient (CLI) | payer BC | END 2020-08-02 10:08 | disposition home or self-care (01) | LOC: LAB 10:07 | PROVIDERS: ATTEND Physician Assistant Medical | DX: E04.1 Nontoxic single thyroid nodule (principal) | CPT/HCPCS: 36415; 83970 ==

== ENCOUNTER 2020-08-08 08:56 | Outpatient (CLI) | payer BC ==
--- NOTE | 2020-08-12 15:59 | Mammography Report ---
UNILATERAL RIGHT DIGITAL DIAGNOSTIC MAMMOGRAM 3D/2D: 08/08/2020 CLINICAL: Diffuse right breast pain. Comparison is made to exams dated: 12/02/2019 mammogram, 10/29/2019 mammogram, 09/08/2018 mammogram, and 09/04/2017 mammogram - [facility]. There are scattered fibroglandular elements in right breast. There is a focal asymmetry in the right breast at 9 o'clock anterior depth. This is not significantl y changed. No other significant masses or calcifications are seen in the breast. IMPRESSION: INCOMPLETE: NEEDS ADDITIONAL IMAGING EVALUATION The focal asymmetry in the right breast is indeterminate. An ultrasound is recommended. This exam was interpreted at Station ID: [id number]. NOTE: For mammograms, a report in lay terms will be sent to the patient. Approximately 15% of breast malignancies will not be visualized mammographically. In the management of a palpable breast mass, a negative mammogram must not discourage biopsy of a clinically suspicious lesion. SUMMARY: Targeted ultrasound is recommended for further evaluation and will be scheduled immediately following this exam. Electronically Signed By: Boom dunaway/robin:08/10/2020 17:06:57 ACR BI-RADS Category 0: Incomplete 3340F PARENCHYMAL PATTERN: (A) - The breast(s) demonstrate(s) scattered fibroglandular densities. BI-RADS CATEGORY: (0) - 0 Ultrasound [id number] Immediate follow-up LATERALITY: (R)
--- NOTE | 2020-08-12 15:59 | Ultrasound Report ---
LIMITED ULTRASOUND OF RIGHT BREAST: 08/08/2020 CLINICAL: Patient returns today to evaluate a density in the right breast. Comparison is made to exams dated: 08/08/2020 mammogram, 12/02/2019 mammogram, 12/02/2019 ultrasound, 10/29/2019 mammogram, and 09/08/2018 mammogram - [facility]. Ultrasound of the right breast retroareolar was performed. There is a 0.3 cm x 0.3 cm x 0.2 cm dilated duct in the right breast central to the nipple in the ret roareolar region. This abnormality is not significantly changed. IMPRESSION: PROBABLY BENIGN The 0.3 cm x 0.3 cm x 0.2 cm dilated duct in the right breast is probably benign. A follow-up mammogram and an ultrasound in 6 months is recommended to demonstrate stability. This exam was interpreted at Station ID: [id number]. Electronically Signed By: Boom dunaway/robin:08/10/2020 17:09:07 Ultrasound BI-RADS: 3 Probably benign BI-RADS CATEGORY: (3) - 3 Mammo and US [id number] 6 month follow-up LATERALITY: (B)
== END 2020-08-08 08:57 | disposition home or self-care (01) ==
LOC: DI 08:56
PROVIDERS: ATTEND Physician Assistant Medical
DX: R92.8 Other abnormal and inconclusive findings on diagnostic imaging of breast (principal); N60.41 Mammary duct ectasia of right breast
CPT/HCPCS: 76642

== ENCOUNTER 2020-08-24 14:00 | Outpatient (CLI) | payer BC | END 2020-08-24 14:01 | disposition home or self-care (01) | LOC: LAB.R 14:00 | PROVIDERS: ATTEND Physician Assistant Medical | DX: M25.559 Pain in unspecified hip (principal) | CPT/HCPCS: 87086; 87181 ==

== ENCOUNTER 2020-08-26 15:39 | Outpatient (CLI) | payer BC | END 2020-08-26 15:40 | disposition home or self-care (01) | LOC: COV 15:39 | PROVIDERS: ATTEND Surgery | DX: Z01.812 Encounter for preprocedural laboratory examination (principal); C17.1 Malignant neoplasm of jejunum; C78.4 Secondary malignant neoplasm of small intestine; Z20.828 Contact with and (suspected) exposure to other viral communicable diseases ==

== ENCOUNTER 2020-09-01 11:32 | Day surgery (SDC) | payer BC ==
[~2020-09-01 11:32] MED LIST changes: +CEFAZOLIN SODIUM IN 0.9 % NACL 2 GM/100 ML BAG IV ONE; -LIDO GARGLE 30 ML BOTTLE ONE
[2020-09-01] MEDS ORDERED: LACTATED RINGERS 1,000 ML IV ONE ×2 (11:40→13:37)
--- NOTE | 2020-09-01 12:06 | ANESTHESIA ---
Pre-Anesthesia VS, & Labs - Diagnosis Melanoma - Procedure Portacath placement Vital Signs: Temp Pulse Resp BP Pulse Ox 36.2 C L 76 16 148/82 H 98 09/01/20 11:40 09/01/20 11:40 09/01/20 11:40 09/01/20 11:40 09/01/20 11:40 Height: 5 ft 7 in Weight (kg): 104.1 kg Body Mass Index: 35.9 BMI Classification: Obese - NPO >8 hours - Is Patient ?: No Home Medications and Allergies ALPRAZolam [Xanax] 0.125 mg PO DAILY PM PRN 07/14/13 Cyclobenzaprine [Flexeril] 10 mg PO TID PRN 07/14/13 DULoxetine [Cymbalta] 30 mg PO DAILY 07/14/13 Hydrochlorothiazide 25 mg PO DAILY 07/14/13 Liothyronine Sodium [Cytomel] 12.5 mcg PO DAILY 07/14/13 Metformin HCl [Fortamet] 1,000 mg PO BID 07/14/13 Metoprolol Succinate [Toprol Xl] 25 mg PO ONCE 07/14/13 Simvastatin [Zocor] 40 mg PO QPM 07/14/13 lisinopriL [Zestril] 5 mg PO DAILY 07/14/13 HYDROcodone/ACET 7.5/325 [[place] 7.5/325] 1 - 2 tab PO TID PRN 06/27/17 estradioL [Estradiol] 1 mg PO DAILY 06/27/17 Levothyroxine [Synthroid] 75 mcg PO QDAC 11/12/[address] [Voltaren] 50 mg PO BID 05/13/18 Omeprazole [PriLOSEC] 1 cap PO BID 05/13/18 Metoclopramide [Reglan] 10 mg PO QID 05/19/19 Acyclovir [Zovirax] 1,000 mg PO 5XD 07/26/20 Allergies/Adverse Reactions: Allergies Allergy/AdvReac Type Severity Reaction Status Date / Time Sulfa (Sulfonamide Allergy Unknown Hives Verified 08/16/20 09:44 Antibiotics) nitrofurantoin Allergy Edema Verified 08/16/20 09:44 oxybutynin Allergy Hives Verified 08/16/20 09:44 diazepam AdvReac Mild Rash Verified 08/16/20 09:44 Anes History & Medical History - Anesthetic History Anesthesia Complications: reports: No previous complications - Medical History Cardiovascular: reports: Hypertension Pulmonary: reports: None Gastrointestinal: reports: GERD, Other (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 19 pack year history) Psychosocial: reports: Anxiety History of Cancer?: Yes (immune therapy) - Surgical History General: Bowel surgery Gynecologic: Hysterectomy, Oophrectomy Orthopedic: Other Dermatologic: Skin cancer surgery Exam General: Alert, Oriented x3, Cooperative, No acute distress Dental: WNL Mouth Openin Fingerbreadth Neck Mobility: Normal Mallampati classification: II Thyromental Distance: 4-6 cm Mental/Cognitive Status: Alert/Oriented X3, Normal for patient Plan Anesthesia Type: MAC Consent for Procedure(s) Verified and Reviewed: Yes Code Status: Attempt Resuscitation ASA classification: 3-Severe systemic disease Is this case an emergency?: No
[2020-09-01] MEDS ORDERED: LIDOCAINE-MPF 2% 5 ML VIAL IM ONE (12:30)
[2020-09-01] MEDS ORDERED: MIDAZOLAM 2 MG/2 ML VIAL IVP ONE (12:30)
[2020-09-01] MEDS ORDERED: fentaNYL 100 MCG/2 ML VIAL IVP ONE (12:30)
[2020-09-01] MEDS ORDERED: PROPOFOL 200 MG/20 ML VIAL IVP ONE (12:30)
[2020-09-01] MEDS ORDERED: LIDOCAINE 1% 50 ML MDV ONE (12:52)
[2020-09-01] MEDS ORDERED: BUPIVACAINE 0.5%-EPI 1:200000 PF 30 ML VIAL ONE (12:52)
[2020-09-01] MEDS ORDERED: LIDOCAINE 1% 50 ML MDV SUBQ ONE ×2 (13:14)
[2020-09-01] MEDS ORDERED: BUPIVACAINE 0.5%-EPI 1:200000 PF 30 ML VIAL SUBQ ONE ×2 (13:15)
--- NOTE | 2020-09-01 13:42 | OPERATIVE REPORT ---
Operative Report - General Procedure Date: 09/01/20 Planned Procedure: Portacath placement Pre-Op Diagnosis: Metastatic melanoma with need for IV access Procedure Performed: Portacath placement (Angiodynamics UPN#[id number], lot#[id number]) in the LEFT subclavian position Post Op Diagnosis: Same - Procedure Note Primary Surgeon: MD Hellen Anesthesia Provider: MD Demetrio Anesthesia Technique: Local (20 mL 1/2% marcaine), Moderate sedation IV Fluids (mL): 500 Estimated Blood Loss (mL): 2 Drain/Tube Type: Other (None.) Findings: Intraoperative chest xray read by me showing good position in RIGHT atrium/SVC without kink or pneumothorax. Complications: None. - Other Other Information/Narrative: See follow up report as dictation in this field has been removed.
[2020-09-01] MEDS ORDERED: HYDROcod/ACETAM 5/325 MG TABLET PO PRN (13:44)
--- NOTE | 2020-09-01 13:51 | XRAY Report ---
PROCEDURE: Chest 1 View X-Ray INDICATIONS: Port placement TECHNIQUE: One view of the chest was acquired. COMPARISON: CT chest 05/27/2020 FINDINGS: Surgical changes and devices: Left chest wall central venous port catheter has been placed in the int erval since the prior study, with the distal tip projecting over the superior cavoatrial junction. Lungs and pleura: No pleural effusions or pneumothorax. Lungs are clear. Mediastinum: Mediastinal contours appear normal. Heart size is normal. Bones and chest wall: No suspicious bony lesions. Overlying soft tissues appear unremarkable. IMPRESSION: Appropriate position of left chest wall port. Reviewed by: Nick Barber MD on 09/01/2020 1:50 PM PST Approved by: Nick Barber MD on 09/01/2020 1:50 PM PST Station ID: [id number]
[2020-09-01] MEDS ORDERED: KETOROLAC 30 MG/ML VIAL IVP PRN (13:54)
[2020-09-01] MEDS ORDERED: KETOROLAC 30 MG/ML VIAL ONE (14:02)
[2020-09-01] MEDS ORDERED: HYDROcod/ACETAM 5/325 MG TABLET ONE (14:03)
[2020-09-01 14:08] VITALS: BP 155/88
== END 2020-09-01 11:33 | disposition home or self-care (01) ==
LOC: SDS 11:32
PROVIDERS: ATTEND Surgery
DX: C43.9 Malignant melanoma of skin, unspecified (principal); C78.4 Secondary malignant neoplasm of small intestine; Z87.891 Personal history of nicotine dependence; E66.9 Obesity, unspecified; Z68.35 Body mass index [BMI] 35.0-35.9, adult; I10 Essential (primary) hypertension; E03.9 Hypothyroidism, unspecified
CPT/HCPCS: 36561; 71045; A9270; C1788; J0690; J7120

== ENCOUNTER 2020-09-05 15:05 | Outpatient (CLI) | payer BC ==
--- NOTE | 2020-09-05 16:45 | DEXA Report ---
PROCEDURE: Dexa Spine and/or Hip INDICATIONS: POST MENOPAUSAL TECHNIQUE: Dual energy x-ray absorptiometry (DXA) was performed on a [employer] System. Regions measur ed are the AP Spine, femoral neck, and if needed forearm. COMPARISON: None. FINDINGS: Lumbar Spine: Bone Mineral Density 1.439 g/cm/cm,T score 2.2, normal Left Hip: Bone Mineral Density 1.299 g/cm/cm,T score 2.3, normal Left Femoral Neck: Bone Mineral Density 1.194 g/cm/cm, T score 1.1, normal (T score greater or equal to -1.0: NORMAL) (T score from -1.1 to -2.4: OSTEOPENIA) (T score less than or equal to -2.5 to: OSTEOPOROSIS) Impression: Normal bone mineral density at the lumbosacral spine, left hip overall, and the left hip femoral neck focally. Patients with diagnosis of osteoporosis or osteopenia should have regular bone mineral density assess ment. For those eligible for Medicare, routine testing is allowed once every 2 years. Testing frequ ency can be increased for patients who have rapidly progressing disease or for those who are receivin g medical therapy to restore bone mass. Reviewed by: Adarsh River MD on 09/05/2020 4:43 PM PST Approved by: Adarsh River MD on 09/05/2020 4:43 PM PST Station ID: [id number]
== END 2020-09-05 15:06 | disposition home or self-care (01) ==
LOC: DI 15:05
PROVIDERS: ATTEND Physician Assistant Medical
DX: Z78.0 Asymptomatic menopausal state (principal)
CPT/HCPCS: 77080

== ENCOUNTER 2020-11-08 11:33 | Outpatient (CLI) | payer BC ==
[2020-11-08 12:56] LABS: C. PNEUMONIAE- RESP PCR PANEL NOT DETECTED
== END 2020-11-08 11:34 | disposition home or self-care (01) ==
LOC: LAB 11:33
DX: Z01.812 Encounter for preprocedural laboratory examination (principal); Z20.822 Contact with and (suspected) exposure to COVID-19; K43.2 Incisional hernia without obstruction or gangrene
CPT/HCPCS: 0202U

== ENCOUNTER 2020-11-10 11:21 | Day surgery (SDC) | payer BC ==
[~2020-11-10 11:21] MED LIST changes: -CEFAZOLIN SODIUM IN 0.9 % NACL 2 GM/100 ML BAG IV ONE; +ceFAZolin 2 GM/50 ML 2 GM/50 ML BAG IV ONE
[2020-11-10] MEDS ORDERED: LACTATED RINGERS 1,000 ML IV ONE ×2 (11:26→13:55)
--- NOTE | 2020-11-10 12:04 | ANESTHESIA ---
Pre-Anesthesia VS, & Labs - Diagnosis Incisional hernia at umbilicus - Procedure incisional hernia repair Vital Signs: Temp Pulse Resp BP Pulse Ox 36 C L 82 16 166/88 H 99 11/10/20 11:26 11/10/20 11:26 11/10/20 11:26 11/10/20 11:26 11/10/20 11:26 Height: 5 ft 7 in Weight (kg): 104 kg Body Mass Index: 35.9 BMI Classification: Obese - NPO >8 hours - Is Patient ?: No - Lab Results Lab results reviewed: Yes Home Medications and Allergies ALPRAZolam [Xanax] 0.125 mg PO DAILY PM PRN 07/14/13 Cyclobenzaprine [Flexeril] 10 mg PO TID PRN 07/14/13 DULoxetine [Cymbalta] 30 mg PO DAILY 07/14/13 Hydrochlorothiazide 25 mg PO DAILY 07/14/13 Liothyronine Sodium [Cytomel] 12.5 mcg PO DAILY 07/14/13 Metformin HCl [Fortamet] 1,000 mg PO BID 07/14/13 Metoprolol Succinate [Toprol Xl] 25 mg PO ONCE 07/14/13 Simvastatin [Zocor] 40 mg PO QPM 07/14/13 lisinopriL [Zestril] 5 mg PO DAILY 07/14/13 estradioL [Estradiol] 1 mg PO DAILY 06/27/17 Levothyroxine [Synthroid] 75 mcg PO QDAC 11/12/[address] [Voltaren] 50 mg PO BID 05/13/18 Omeprazole [PriLOSEC] 1 cap PO BID 05/13/18 Metoclopramide [Reglan] 10 mg PO QID 05/19/19 Acyclovir [Zovirax] 1,000 mg PO 5XD 07/26/20 Allergies/Adverse Reactions: Allergies Allergy/AdvReac Type Severity Reaction Status Date / Time Sulfa (Sulfonamide Allergy Unknown Hives Verified 10/11/20 10:36 Antibiotics) nitrofurantoin Allergy Edema Verified 10/11/20 10:36 oxybutynin Allergy Hives Verified 10/11/20 10:36 diazepam AdvReac Mild Rash Verified 10/11/20 10:36 Anes History & Medical History - Anesthetic History Anesthesia Complications: reports: No previous complications Family history of Anesthesia Complications: Denies Family history of Malignant Hyperthermia: Denies - Medical History Cardiovascular: reports: Hypertension Pulmonary: reports: None Gastrointestinal: reports: GERD, Other Urinary: reports: None Neuro: reports: None Musculoskeletal: reports: Chronic back pain Endocrine/Autoimmune: reports: HyPOthyroidism, Other Blood Disorders: reports: None Skin: reports: None Smoking Status: Former smoker (Quit 2001. 19 pack year history) History of Cancer?: Yes (melanoma) - Surgical History General: Bowel surgery Gynecologic: Hysterectomy, Oophrectomy Orthopedic: Spine surgery, Other Dermatologic: Skin cancer surgery Exam General: Alert, Oriented x3, Cooperative Dental: WNL Mouth Openin Fingerbreadth Neck Mobility: Normal Mallampati classification: II Thyromental Distance: 4-6 cm Respiratory: Lungs clear, Normal breath sounds, No respiratory distress Cardiovascular: Regular rate Neurological: Normal speech Mental/Cognitive Status: Alert/Oriented X3, Normal for patient Cognitive Status: Within normal limits Plan Anesthesia Type: General Consent for Procedure(s) Verified and Reviewed: Yes Code Status: Attempt Resuscitation ASA classification: 3-Severe systemic disease Is this case an emergency?: No
[2020-11-10] MEDS ORDERED: fentaNYL 100 MCG/2 ML VIAL ONE ×2 (12:06→13:10)
[2020-11-10] MEDS ORDERED: PROPOFOL 200 MG/20 ML VIAL IVP ONE (12:08)
[2020-11-10] MEDS ORDERED: MIDAZOLAM 2 MG/2 ML VIAL ONE (12:08)
[2020-11-10] MEDS ORDERED: BUPIVACAINE 0.5% PF 30 ML VIAL ONE (12:21)
[2020-11-10] MEDS ORDERED: LIDOCAINE-MPF 2% 5 ML VIAL ONE (12:42)
[2020-11-10] MEDS ORDERED: BUPIVACAINE 0.25% PF 30 ML VIAL SUBQ ONE (12:49)
[2020-11-10] MEDS ORDERED: DEXAMETHASONE 4 MG/ML VIAL ONE (12:53)
[2020-11-10] MEDS ORDERED: ROCURONIUM 50 MG/5 ML VIAL ONE (13:10)
[2020-11-10] MEDS ORDERED: ePHEDrine 50 MG/ML VIAL IVP ONE (13:46)
[2020-11-10] MEDS ORDERED: ONDANSETRON 4 MG/2 ML VIAL ONE (13:56)
[2020-11-10] MEDS ORDERED: HYDROcod/ACETAM 5/325 MG TABLET PO PRN (13:56)
[2020-11-10] MEDS ORDERED: ONDANSETRON 4 MG/2 ML VIAL IVP PRN ×2 (13:56→13:59)
[2020-11-10] MEDS ORDERED: HYDROmorphone 0.5 MG/0.5 ML SYRINGE IVP PRN ×2 (13:56→13:59)
[2020-11-10] MEDS ORDERED: MORPHINE 2 MG/ML CARPUJECT IVP PRN (13:59)
[2020-11-10] MEDS ORDERED: ATROPINE ABBOJECT 1 MG/10 ML SYRINGE IVP PRN (13:59)
[2020-11-10] MEDS ORDERED: NALOXONE 0.4 MG/ML VIAL IVP PRN (13:59)
[2020-11-10] MEDS ORDERED: fentaNYL 100 MCG/2 ML VIAL IVP PRN (13:59)
[2020-11-10] MEDS ORDERED: LACTATED RINGERS 1,000 ML IV SCH (14:00)
--- NOTE | 2020-11-10 14:05 | OPERATIVE REPORT ---
Operative Report - General Procedure Date: 11/10/20 Planned Procedure: Incisional herniorrhaphy Pre-Op Diagnosis: Incisional hernia Procedure Performed: Incisional herniorrhaphy with mesh Post Op Diagnosis: Incisional hernia - Procedure Note Primary Surgeon: Mat Macedo MD Anesthesia Technique: General LMA, Local (30 mL 1/2% marcaine) IV Fluids (mL): 1,000 Estimated Blood Loss (mL): 10 Drain/Tube Type: Other (None.) Complications: None. - Other Other Information/Narrative: After verbal and written informed consent was obtained detailing the operation, the alternatives the operation including no operation, risks of infection, bleeding requiring transfusion with its risks, nerve injury, and and after I met with the patient confirming the surgery and the site of surgery, the patient was brought to the operative suite and placed supine on the operating table. Great care was taken to avoid pressure points to prevent pressure necrosis or nerve injury. Monitoring devices were applied along with TEDs and pneumatic compression stockings (to prevent DVT). The patient received preoperative antibiotics for surgical prophylaxis. (Anesthesiologist) sedated and anesthetized the patient for the entire procedure. The patient was prepped and draped in the usual sterile manner. With the patient draped my initials were clearly visible. A "time in" then confirmed that the patient was identified with 3 identifiers (name, birthdate, and medical record number), the history and physical was updated and in the chart, the signed consent confirming the procedure was in the chart, the patient was in the correct position, the aforementioned prophylactic measures were in place or given, we had the correct personnel and equipment to complete the procedure and that anesthesia and the surgical team were given an opportunity to express any concerns. With the agreement of everyone in the room we proceeded with the operation. After anesthetizing the skin and subcutaneous tissues the previous supra umbilical incision was traced and extended 1-1/2 cm on either side. Dissection down to the hernia sac was completed using a combination of blunt dissection with a tonsil clamp, Metzenbaum scissors, and Bovie electrocautery. The hernia sac was dissected from surrounding tissues primarily using Bovie electrocautery. The hernia sac was taken down to the fascial opening circumferentially and the defect was larger than expected. The defect measured slightly over 4 cm in diameter. The sac was excised using Bovie electrocautery. Fresh fascial edges were exposed. A [address] mesh (reference #[id number], lot# [id number], use by 2021-06-24) was opened and deployed centrally so that there was significant overlap of mesh in every direction. 0 PDS "U" stitches were placed at the 12:00 1:30, 3:00, 4:30, 6:00, 7:30, 9:00,10:30 o'clock position but not tied so that the placement ring could be removed. Once I was satisfied with the position the placement ring was removed and the mesh tied in place. The remaining fascial tissue was then sewn over the mesh using a running 0 PDS suture to maximize contact with the mesh. The fascia was then injected with half percent Marcaine. The subcutaneous tissues were copiously irrigated using warm sterile saline. Hemostasis obtained using Bovie electrocautery. The subcutaneous tissues were approximated using interrupted 3-0 Vicryl suture. The skin incision was approximated with 4-0 Monocryl in a subcuticular fashion. The skin was cleaned of its prep and Dermabond was applied. At this point a timeout was performed that confirmed that all counts were correct x2, the procedure that was performed, the blood loss, the IV fluids administered, the patient's condition, and any concerns of the operating team had. Having tolerated the procedure well, the patient was taken recovery room in good and stable condition. The plan is for outpatient discharge when the patient is adequately recovered. This document was created in part using voice recognition technology. Because of the inherent limitations of the system, occasional same sounding word substitutions and grammatical errors do occur and persist despite proofreading. Please read this document for content.
[2020-11-10] MEDS: HYDROmorphone 1 MG/ML CARPUJECT ONE ×2 (14:09→14:10)
[2020-11-10] MEDS ORDERED: HYDROcod/ACETAM 5/325 MG TABLET ONE (15:11)
[2020-11-10] MEDS ORDERED: HYDROmorphone 0.5 MG/0.5 ML SYRINGE ONE (15:40)
--- NOTE | 2020-11-10 15:47 | MISCELLANEOUS PROVIDER NOTE ---
Miscellaneous Provider Note - - Note: Patient is having more postoperative pain than she expected (incisional hernia was much larger than expected requiring larger incision and larger piece of mesh as well as more dissection) so prescription for 2 mg oral Dilaudid Q4H prn pain written. 12 tablets. Discussed with patient.
[2020-11-10 15:57] VITALS: BP 140/62
== END 2020-11-10 11:22 | disposition home or self-care (01) ==
LOC: SDS 11:21
PROVIDERS: ATTEND Surgery
DX: K43.2 Incisional hernia without obstruction or gangrene (principal); I10 Essential (primary) hypertension; E03.9 Hypothyroidism, unspecified; Z87.891 Personal history of nicotine dependence; C43.9 Malignant melanoma of skin, unspecified; K21.9 Gastro-esophageal reflux disease without esophagitis; E66.9 Obesity, unspecified; Z68.35 Body mass index [BMI] 35.0-35.9, adult
CPT/HCPCS: 49560; 49568; A9270; J0690; J1170; J7120

== ENCOUNTER 2020-12-13 07:32 | Outpatient (CLI) | payer BC ==
[2020-12-13] MEDS ORDERED: IOPAMIDOL-300 50 ML VIAL ONE (07:49)
[2020-12-13] MEDS ORDERED: IOVERSOL 320 100 ML VIAL IVP ONE ×2 (07:49→18:26)
--- NOTE | 2020-12-13 12:15 | CT Report ---
PROCEDURE: CHEST W INDICATIONS: SMALL INTESTINE CA CONTRAST: IV CONTRAST: Optiray 320 ml: 100 PO CONTRAST: Isovue 300 ml50 TECHNIQUE: After the administration of intravenous contrast, 5 mm thick sections acquired from the pulmonary api nigel to the posterior costophrenic angles. 7 mm thick coronal MIP reformats were acquired. For radia tion dose reduction, the following was used: automated exposure control, adjustment of mA and/or kV according to patient size. COMPARISON: 05/27/2020 FINDINGS: Image quality: Excellent. Lungs and pleura: No acute air space opacities. No pleural effusions or pneumothorax. Central and peripheral airways are patent and normal in caliber. Mediastinum: Heart size is normal. No pericardial effusion. No mediastinal or hilar adenopathy by size criteria. Thoracic aorta and central pulmonary arteries are normal in size. Mild aortic arch ca lcification. Esophagus is normal in caliber. No hiatal hernia. Bones and chest wall: Left chest Mediport. No suspicious bony lesions. No vertebral body compression fractures. No axillary or supraclavicular adenopathy by size criteria. Thyroid gland is only parti ally seen. Abdomen: Mild hepatic steatosis. Partially exophytic left posterior upper pole cystic lesion stable in size. Increased quantity of solid stool in the splenic flexure of the colon. IMPRESSION: 1. No evidence of metastatic disease in the chest. Reviewed by: Gisela Armijo MD on 12/13/2020 11:14 AM [place] Approved by: Gisela Armijo MD on 12/13/2020 11:14 AM [facility] Station ID: [id number]
--- NOTE | 2020-12-13 14:06 | CT Report ---
PROCEDURE: Abdomen/Pelvis W INDICATIONS: SMALL INTESTINE CA CONTRAST: IV CONTRAST: Optiray 320 ml: 100 PO CONTRAST: Isovue 300 ml50 TECHNIQUE: After the administration of intravenous and oral contrast, 5 mm thick sections acquired from the diap hragms to the symphysis. 5 mm thick coronal and sagittal reformats were acquired. For radiation dos e reduction, the following was used: automated exposure control, adjustment of mA and/or kV accordin g to patient size. COMPARISON: CT of the pelvis 05/27/2020, 11/05/2019 . FINDINGS: Image quality: Excellent. ABDOMEN: Lung bases: Lung bases are clear. Heart size is normal. Solid organs: Evaluation of the liver demonstrates no focal hepatic lesions. Gallbladder appears wit hin normal limits without calcified gallstones. Biliary system is non dilated. The spleen is normal in size. Pancreas enhances normally without peripancreatic fat stranding or fluid collections. No ad renal nodules. Kidneys demonstrate no hydronephrosis. There is a small exophytic left renal cyst. Peritoneum and bowel: Bowel loops demonstrate normal wall thickness and caliber. No discrete bowel m ass lesions identified. There is mild colonic diverticulosis without acute diverticular colitis. No f ree fluid or air. Nodes and vessels: No retroperitoneal or mesenteric adenopathy by size criteria. Aorta and inferior vena cava are normal in size. Miscellaneous: There is a loculated saphenous fluid collection deep to the umbilicus within the vent ral abdominal wall measuring approximately 4.6 x 3.2 x 5.5 cm likely representing a postsurgical sero ma related to prior hernia repair. There is mild wall thickening along the left aspect of the collect ion. No recurrent ventral hernias. PELVIS: Genitourinary: Bladder wall thickness is normal. Miscellaneous: No inguinal hernias or adenopathy. Bones: No suspicious bony lesions. No vertebral body compression fractures. IMPRESSION: 1. No definite evidence of new recurrent or metastatic disease. 2. Interval postsurgical changes demonstrated within the ventral abdominal wall with a subcutaneous l oculated fluid collection likely representing a postsurgical seroma. The differential includes an abs cess. Recommend correlation clinically and follow-up to demonstrate resolution. Reviewed by: Isaiah Centeno MD on 12/13/2020 2:05 PM PST Approved by: Isaiah Centeno MD on 12/13/2020 2:05 PM PST Station ID: [id number]
[2020-12-13] MEDS ORDERED: IOPAMIDOL-300 50 ML VIAL PO ONE (18:25)
== END 2020-12-13 07:33 | disposition home or self-care (01) ==
LOC: DI 07:32
PROVIDERS: ATTEND Internal Medicine Hematology & Oncology
DX: C78.4 Secondary malignant neoplasm of small intestine (principal)
CPT/HCPCS: 71260; 74177; Q9967

== ENCOUNTER 2020-12-27 08:00 | Outpatient (CLI) | payer BC | END 2020-12-27 23:59 | disposition home or self-care (01) | LOC: LAB 08:00 | PROVIDERS: ATTEND Family Medicine | DX: N39.0 Urinary tract infection, site not specified (principal) | CPT/HCPCS: 87086 ==

== ENCOUNTER 2021-02-01 10:28 | Outpatient (CLI) | payer BC ==
--- NOTE | 2021-02-02 12:51 | Mammography Report ---
BILATERAL DIGITAL DIAGNOSTIC MAMMOGRAM 3D/2D: 02/01/2021 CLINICAL: Patient returns for a 6 month follow up of the right breast, due for bilateral exam. Comparison is made to exams dated: 08/08/2020 mammogram, 08/08/2020 ultrasound, 12/02/2019 ultrasound, 12/02/2019 mammogram, 10/29/2019 mammogram, and 09/08/2018 mammogram - [facility]. Th ere are scattered fibroglandular elements in both breasts. There is an oval equal density asymmetry with an indistinct margin in the right breast at 11 o'clock anterior depth. This is not significantly changed. No other significant masses, calcifications, or other findings are seen in either breast. IMPRESSION: INCOMPLETE: NEEDS ADDITIONAL IMAGING EVALUATION The oval equal density asymmetry in the right breast is indeterminate. An ultrasound is recommended. Ultrasound will be performed immediately following the current exam. This exam was interpreted at Station ID: [id number]. NOTE: For mammograms, a report in lay terms will be sent to the patient. Approximately 15% of breast malignancies will not be visualized mammographically. In the management of a palpable breast mass, a negative mammogram must not discourage biopsy of a clinically suspicious lesion. Electronically Signed By: Isaiah Centeno M.D. ddp/:02/01/2021 11:06:37 ACR BI-RADS Category 0: Incomplete 3340F PARENCHYMAL PATTERN: (A) - The breast(s) demonstrate(s) scattered fibroglandular densities. BI-RADS CATEGORY: (0) - 0 Ultrasound [id number] Immediate follow-up LATERALITY: (B)
--- NOTE | 2021-02-02 12:51 | Ultrasound Report ---
LIMITED ULTRASOUND OF RIGHT BREAST: 02/01/2021 CLINICAL: Short term follow up of the right breast. Comparison is made to exams dated: 02/01/2021 mammogram, 08/08/2020 mammogram, 08/08/2020 ultrasound, 12/02/2019 mammogram, 12/02/2019 ultrasound, and 10/29/2019 mammogram - [facility]. Color flow and real-time ultrasound of the right breast 9 o'clock, and retroareolar regions were perf ormed on the areas of interest. There are a few dilated ducts in the right breast at 9 o'clock in the retroareolar region. These are associated with 2 small loculated oval focally dilated ducts or cysts measuring up to 0.5 x 0.3 x 0. 4 cm and 0.4 x 0.2 x 0.3 cm which appear anechoic. The findings are not significantly changed and cor relate with mammography findings. Color flow imaging demonstrates that there is no vascularity prese nt. IMPRESSION: PROBABLY BENIGN The dilated ducts with 2 associated focal dilated ducts or cysts in the right breast are probably cesar ign. A follow-up mammogram and an ultrasound in 12 months are recommended to demonstrate 2 year stability. This exam was interpreted at Station ID: [id number]. Electronically Signed By: Isaiah Centeno M.D. ddp/:02/01/2021 12:13:09 Ultrasound BI-RADS: 3 Probably benign BI-RADS CATEGORY: (3) - 3 Mammo and US [id number] 12 month follow-up LATERALITY: (B)
== END 2021-02-01 10:29 | disposition home or self-care (01) ==
LOC: DI 10:28
PROVIDERS: ATTEND Physician Assistant Medical
DX: N60.41 Mammary duct ectasia of right breast (principal)

== ENCOUNTER 2021-04-18 07:00 | Outpatient (CLI) | payer BC ==
[2021-04-19 11:07] LABS: CHOL/HDL RATIO 5.1 (<4.4); CHOLESTEROL 192 mg/dL; HDL CHOLESTEROL 38 mg/dL; TRIGLYCERIDES 414 mg/dL
[2021-04-19 11:28] LABS: LDL CHOLESTEROL,DIRECT 87 mg/dL; LDLD/HDL RATIO 2.3 (<4.4)
== END 2021-04-18 23:59 | disposition home or self-care (01) ==
LOC: LAB 07:00
PROVIDERS: ATTEND Physician Assistant Medical
DX: E78.5 Hyperlipidemia, unspecified (principal)
CPT/HCPCS: 36415; 80061; 83721

== ENCOUNTER 2021-09-26 12:45 | Outpatient (CLI) | payer BC | END 2021-09-26 23:59 | disposition home or self-care (01) | LOC: LAB 12:45 | PROVIDERS: ATTEND Family Medicine | DX: R30.0 Dysuria (principal) | CPT/HCPCS: 87086; 87181 ==

== ENCOUNTER 2022-01-17 08:00 | Outpatient (CLI) | payer BC | END 2022-01-17 23:59 | LOC: LAB.N 08:00 | PROVIDERS: ATTEND Nurse Practitioner | DX: N39.0 Urinary tract infection, site not specified (principal) | CPT/HCPCS: 87077; 87086; 87181 ==

== ENCOUNTER 2022-01-30 08:00 | Outpatient (CLI) | payer BC | END 2022-01-30 23:59 | disposition home or self-care (01) | LOC: LAB.N 08:00 | PROVIDERS: ATTEND Nurse Practitioner | DX: N39.0 Urinary tract infection, site not specified (principal) | CPT/HCPCS: 87077; 87086; 87181 ==

== ENCOUNTER 2022-02-15 08:00 | Outpatient (CLI) | payer BC | END 2022-02-15 23:59 | disposition home or self-care (01) | LOC: LAB.N 08:00 | PROVIDERS: ATTEND Physician Assistant Medical | DX: N39.0 Urinary tract infection, site not specified (principal) | CPT/HCPCS: 87086 ==

== ENCOUNTER 2022-04-12 08:00 | Outpatient (CLI) | payer BC | END 2022-04-12 23:59 | disposition home or self-care (01) | LOC: LAB.R 08:00 | PROVIDERS: ATTEND Physician Assistant Medical | DX: R30.0 Dysuria (principal) | CPT/HCPCS: 87077; 87086; 87181 ==

== ENCOUNTER 2022-04-12 11:16 | Outpatient (CLI) | payer BC ==
[2022-04-12 11:52] LABS: CHOL/HDL RATIO 4.7 (<4.4); CHOLESTEROL 183 mg/dL; HDL CHOLESTEROL 39 mg/dL; LDL CHOLESTEROL,CALCULATED 88 mg/dL; LDL/HDL RATIO 2.3 (<4.4); TRIGLYCERIDES 282 mg/dL; VLDL CHOLESTEROL 56 mg/dL
== END 2022-04-12 11:17 | disposition home or self-care (01) ==
LOC: LAB 11:16
PROVIDERS: ATTEND Physician Assistant Medical
DX: E78.5 Hyperlipidemia, unspecified (principal); R30.0 Dysuria
CPT/HCPCS: 36415; 80061; 83721; 87077; 87086; 87181

== ENCOUNTER 2022-04-24 16:59 | Outpatient (CLI) | payer BC ==
[2022-04-24 15:05] LABS: BILIRUBIN,URINE NEGATIVE (NEGATIVE); GLUCOSE, URINE (UA) NEGATIVE (NEGATIVE); KETONES,URINE (UA) NEGATIVE (NEGATIVE); LEUKOCYTE ESTERASE, URINE SMALL (NEGATIVE); NITRITE,URINE NEGATIVE (NEGATIVE); OCCULT BLOOD,URINE NEGATIVE (NEGATIVE); PROTEIN,URINE NEGATIVE (NEGATIVE); UROBILINOGEN,URINE 0.2 (NORMAL) E.U./dL (NORMAL)
[2022-04-24 15:07] LABS: CLARITY,URINE HAZY (CLEAR)
[2022-04-24 15:16] LABS: BACTERIA,URINE Few /HPF (None Seen); RBC,URINE 0-5 /HPF (0-5); SQUAMOUS EPITHELIAL CELL,UR FEW Squamous (<= Few); WBC,URINE >25 /HPF (0-5)
--- NOTE | 2022-04-25 12:20 | Ultrasound Report ---
PROCEDURE: Head or Neck Soft Tissue INDICATIONS: THYROID CYST TECHNIQUE: Real-time scanning was performed of the thyroid gland, with image documentation. COMPARISON: Thyroid ultrasound 07/29/2020. FINDINGS: Right: Thyroid lobe measures 5.3 x 1.5 x 1.8 cm, and is homogeneous in echotexture. Left: Thyroid lobe measures 4.9 x 1.2 x 1.9 cm, and is homogenous in echotexture. Isthmus: 3 mm thick. Nodule number: One Location: Right lobe, superior Size: 0.4 x 0.4 x 0.3 cm. Not definitively visualized previously. Composition: Solid Echogenicity: Isoechoic Shape: wider than tall. Margins: Ill-defined Echogenic foci: Punctate echogenic foci Total points: 6 ACR TI-RADS category: 4, moderately suspicious Nodule number: Two Location: Right lobe, inferior Size: 0.5 x 0.3 x 0.5 cm. Previously 0.6 x 0.5 x 0.7 cm. Composition: Cystic and solid Echogenicity: Anechoic/isoechoic Shape: wider than tall. Margins: Smooth Echogenic foci: Absent Total points: 2 ACR TI-RADS category: 2, not suspicious Nodule number: Three Location: Left lobe, mid medial Size: 0.8 x 0.7 x 0.7 cm. Previously 0.7 x 0.7 x 0.6 cm, no significant change. Composition: Solid Echogenicity: Isoechoic Shape: wider than tall. Margins: Smooth Echogenic foci: None Total points: 3 ACR TI-RADS category: 3, mildly suspicious Nodule number: Four Location: Left lobe, mid lateral Size: 1.2 x 0.7 x 1.1 cm. Previously 1.1 x 0.6 x 0.8 cm, no significant change. Composition: Spongiform Echogenicity: Isoechoic Shape: wider than tall. Margins: Smooth Echogenic foci: None Total points: 0 ACR TI-RADS category: 1, benign Other: Previously described hypoechoic nodule posterior to the right lobe of the thyroid gland is not well-visualized on the current exam. There is a echogenic rounded focus posterior to the inferior ri ght lobe of the thyroid gland which measures 0.7 x 0.6 x 0.4 cm, not documented previously. IMPRESSION: 1. Several thyroid nodules are present as above, none meeting TI-RADS criteria for FNA recommendation . 2. Newly apparent subcentimeter echogenic structure posterior to the inferior right lobe of the thyro id gland. This is a nonspecific finding. Increased echogenicity would be atypical for a parathyroid a denoma, however correlation for hyperparathyroidism may be helpful. This could potentially represent a pseudolesion/artifact or prominent region of fat. Attention to this finding on follow-up exams is r ecommended. 3. Although no nodules meet TI-RADS criteria for follow-up, consider follow-up in 12 months or other interval at clinical discretion given the newly apparent small nodule at the right upper thyroid lobe and newly apparent possible echogenic structure posterior to the right inferior thyroid. ACR TI-RADS definitions and recommendations: TI-RADS 1 (benign): 0 points. FNA not needed. TI-RADS 2 (not suspicious): 2 points. FNA not needed. TI-RADS 3 (mildly suspicious): 3 points. "FNA if 2.5 cm or larger, follow up if 1.5 cm or larger (at 1, 3, and 5 years). TI-RADS 4 (moderately suspicious): 4-6 points. "FNA if 1.5 cm or larger, follow up if 1 cm or larger (at 1, 2, 3, and 5 years). TI-RADS 5 (highly suspicious): 7 points or more. "FNA if 1 cm or larger, follow up if 0.5 cm or larger (every year for 5 years). Reviewed by: Boom Chacko MD on 04/25/2022 11:22 AM PDT Approved by: Boom Chacko MD on 04/25/2022 11:22 AM PDT Station ID: [id number]
== END 2022-04-24 17:00 | disposition home or self-care (01) ==
LOC: DI 16:59
PROVIDERS: ATTEND Physician Assistant Medical
DX: E04.2 Nontoxic multinodular goiter (principal); R30.0 Dysuria
CPT/HCPCS: 81001; 87086; 87181

== ENCOUNTER 2022-05-21 11:19 | Outpatient (CLI) | payer BC | END 2022-05-21 11:20 | disposition home or self-care (01) | LOC: LAB 11:19 | PROVIDERS: ATTEND Physician Assistant Medical | DX: E04.1 Nontoxic single thyroid nodule (principal) | CPT/HCPCS: 36415; 83970 ==

== ENCOUNTER 2022-05-21 12:24 | Outpatient (CLI) | payer BC ==
--- NOTE | 2022-05-22 11:57 | Ultrasound Report ---
LIMITED ULTRASOUND OF RIGHT BREAST: 05/21/2022 CLINICAL: Patient returns today to evaluate a focal asymmetry in the right breast. Comparison is made to exams dated: 05/21/2022 mammogram, 02/01/2021 ultrasound, 02/01/2021 mammogram, 09/2020 mammogram, 08/08/2020 ultrasound, and 12/02/2019 ultrasound - [facility]. Color flow and real-time ultrasound of the right breast 9 o'clock region were performed. Onofre scale images of the real-time examination were reviewed. There is a stable benign dilated duct in the right breast at 9 o'clock anterior depth. This dilated duct displays internal echoes. There also is a benign 0.3 cm oval simple cyst in the right breast at 9 o'clock anterior depth. IMPRESSION: BENIGN There is no sonographic evidence of malignancy. The stable dilated duct in the right breast at 9 o'clock anterior depth is benign. The 0.3 cm oval simple cyst in the right breast at 9 o'clock anterior depth is benign. Exam findings were conveyed to the patient. A 1 year screening mammogram is recommended. This exam was interpreted at Station ID: [id number]. Electronically Signed By: Dominic Preciado M.D. slc/:05/21/2022 13:48:31 Ultrasound BI-RADS: 2 Benign BI-RADS CATEGORY: (2) - 2 RECOMMENDATION: (ANNUAL) - Recommend routine annual screening mammography. [id number] 1 year screening LATERALITY: (B)
--- NOTE | 2022-05-22 11:57 | Mammography Report ---
BILATERAL DIGITAL DIAGNOSTIC MAMMOGRAM 3D/2D: 05/21/2022 CLINICAL: Patient returns for a 6 month follow up of the right breast; due for bilateral. Comparison is made to exams dated: 02/01/2021 mammogram, 08/08/2020 mammogram, 12/02/2019 mammogram, 10/29 mammogram, and 09/08/2018 mammogram - [facility]. There are scattered fibrog landular elements in both breasts. There is an asymmetry in the right breast at 11 o'clock anterior depth. This is not significantly ch anged. No other significant masses, calcifications, or other findings are seen in either breast. IMPRESSION: INCOMPLETE: NEEDS ADDITIONAL IMAGING EVALUATION The asymmetry in the right breast is indeterminate. A targeted ultrasound is recommended and will immediately follow. Based on the Tyrer Cuzick model (a risk assessment model) the patients lifetime risk is 4.5% and her 10 year risk is 1.5%. According to the ACR, ACS, and NCCN guidelines, an annual breast MRI exam mil g with mammogram is recommended if the patients lifetime risk is 20% or greater. This exam was interpreted at Station ID: [id number]. NOTE: For mammograms, a report in lay terms will be sent to the patient. Approximately 15% of breast malignancies will not be visualized mammographically. In the management of a palpable breast mass, a negative mammogram must not discourage biopsy of a clinically suspicious lesion. Electronically Signed By: Dominic Preciado M.D. slc/:05/21/2022 13:20:37 ACR BI-RADS Category 0: Incomplete 3340F PARENCHYMAL PATTERN: (A) - The breast(s) demonstrate(s) scattered fibroglandular densities. BI-RADS CATEGORY: (0) - 0 Ultrasound [id number] Immediate follow-up LATERALITY: (B)
== END 2022-05-21 12:25 | disposition home or self-care (01) ==
LOC: DI 12:24
PROVIDERS: ATTEND Physician Assistant Medical
DX: N60.01 Solitary cyst of right breast (principal)

== ENCOUNTER 2022-12-27 07:20 | Outpatient (CLI) | payer BC ==
[2022-12-27 07:52] LABS: BUN - BLOOD UREA NITROGEN 22 mg/dL (6-20); CALCIUM 9.9 mg/dL (8.5-10.3); CARBON DIOXIDE - CO2 31 mmol/L (21-32); CHLORIDE 98 mmol/L (101-111); CHOL/HDL RATIO 3.7 (<4.4); CHOLESTEROL 170 mg/dL; CREATININE 0.6 mg/dL (0.4-1.0); GFR - MDRD 103 (>89); GLUCOSE 108 mg/dL (70-100); HDL CHOLESTEROL 46 mg/dL; LDL CHOLESTEROL,CALCULATED 78 mg/dL; LDL/HDL RATIO 1.7 (<4.4); SODIUM 137 mmol/L (135-145); TRIGLYCERIDES 228 mg/dL; VLDL CHOLESTEROL 46 mg/dL
[2022-12-27 08:04] LABS: THYROID STIMULATING HORMONE 2.02 uIU/mL (0.34-5.60)
[2022-12-27 10:02] LABS: ESTIMATED AVERAGE GLUCOSE 120 mg/dL (70-100); HEMOGLOBIN A1c% 5.8 % (4.27-6.07)
== END 2022-12-27 07:21 | disposition home or self-care (01) ==
LOC: LAB 07:20
PROVIDERS: ATTEND Physician Assistant Medical
DX: E78.5 Hyperlipidemia, unspecified (principal); R73.9 Hyperglycemia, unspecified; E03.9 Hypothyroidism, unspecified
CPT/HCPCS: 36415; 80048; 80061; 83036; 83721; 84443

== ENCOUNTER 2023-01-03 08:08 | Outpatient (CLI) | payer BC ==
--- NOTE | 2023-01-04 11:38 | Mammography Report ---
UNILATERAL RIGHT DIGITAL DIAGNOSTIC MAMMOGRAM 3D/2D: 01/03/2023 CLINICAL: Palpable right breast lump. Comparison is made to exams dated: 05/21/2022 mammogram, 02/01/2021 mammogram, 12/02/2019 mammogram, 07/28 mammogram, 10/29/2019 mammogram, and 09/08/2018 mammogram - [facility]. There are scattered areas of fibroglandular density in the right breast (category b / 25%-50% glandul ar tissue). No significant masses, calcifications, or other findings are seen in the breast. IMPRESSION: INCOMPLETE: NEEDS ADDITIONAL IMAGING EVALUATION No mammographic evidence of malignancy. A targeted ultrasound of the palpable abnormality is recommended and will immediately follow. Based on the Tyrer Cuzick model (a risk assessment model) the patients lifetime risk is 4.5% and her 10 year risk is 1.5%. According to the ACR, ACS, and NCCN guidelines, an annual breast MRI exam mil g with mammogram is recommended if the patients lifetime risk is 20% or greater. This exam was interpreted at Station ID: [id number]. NOTE: For mammograms, a report in lay terms will be sent to the patient. Approximately 15% of breast malignancies will not be visualized mammographically. In the management of a palpable breast mass, a negative mammogram must not discourage biopsy of a clinically suspicious lesion. Electronically Signed By: Dominic Preciado M.D. slc/:01/03/2023 08:45:13 ACR BI-RADS Category 0: Incomplete 3340F PARENCHYMAL PATTERN: (A) - The breast(s) demonstrate(s) scattered fibroglandular densities. BI-RADS CATEGORY: (0) - 0 Ultrasound [id number] Immediate follow-up LATERALITY: (B)
--- NOTE | 2023-01-04 11:38 | Ultrasound Report ---
LIMITED ULTRASOUND OF RIGHT BREAST: 01/03/2023 CLINICAL: Palpable right breast lump. Palpable right breast lump by physician. Comparison is made to exams dated: 05/21/2022 ultrasound, 05/21/2022 mammogram, 02/01/2021 ultrasound, mammogram, and 08/08/2020 mammogram - [facility]. Color flow and real-time ultrasound of the right breast 2 o'clock region were performed. Onofre scale images of the real-time examination were reviewed. There is a benign 3.1 cm x 2.6 cm x 0.7 cm oval mass with a circumscribed margin in the right breast at 2 o'clock posterior depth 7 cm from the nipple. The mass is located just deep to the skin. This ov al mass is isoechoic. This correlates as palpated. Color flow imaging demonstrates that there is no vascularity present. IMPRESSION: BENIGN There is no sonographic evidence of malignancy. The 3.1 cm oval mass in the right breast is consistent with a lipoma and is benign. A 1 year screening mammogram is recommended. Exam findings were conveyed to the patient. Patient is advised to monitor for significant change. Cli nical follow-up as needed. This exam was interpreted at Station ID: [id number]. Electronically Signed By: Dominic Preciado M.D. slc/:01/03/2023 09:08:53 Ultrasound BI-RADS: 2 Benign BI-RADS CATEGORY: (2) - 2 Mammogram [id number] 1 year screening LATERALITY: (B)
== END 2023-01-03 08:09 | disposition home or self-care (01) ==
LOC: DI 08:08
PROVIDERS: ATTEND Physician Assistant Medical
DX: N63.12 Unspecified lump in the right breast, upper inner quadrant (principal)

== ENCOUNTER 2023-01-30 14:52 | Outpatient (CLI) | payer BC | END 2023-01-30 14:53 | disposition home or self-care (01) | LOC: LAB 14:52 | PROVIDERS: ATTEND Physician Assistant | DX: E34.9 Endocrine disorder, unspecified (principal) | CPT/HCPCS: 81599; 82308 ==

== ENCOUNTER 2023-04-21 09:12 | Outpatient (CLI) | payer BC ==
--- NOTE | 2023-04-21 20:23 | Ultrasound Report ---
PROCEDURE: Head or Neck Soft Tissue INDICATIONS: THYROID CYST TECHNIQUE: Real-time scanning was performed of the thyroid gland, with image documentation. COMPARISON: Thyroid ultrasound 04/16/2022, 08/16/2020, 08/21/2017 FINDINGS: Right: Thyroid lobe measures 4.5 x 1.6 x 1.7 cm, and is homogeneous in echotexture. Left: Thyroid lobe measures 4.2 x 1.4 x 1.9 cm, and is homogenous in echotexture. Isthmus: 2 mm thick. Nodule number: One Location: Right superior Size: 0.6 x 0.5 x 0.5 cm compared to 0.5 x 0.3 x 0.5 cm. Composition: Predominantly cystic Echogenicity: Anechoic. Shape: wider than tall. Margins: Smooth (0 points). Echogenic foci: None (0 points). Total points: 2 ACR TI-RADS category: 2. Nodule number: Two Location: Left thyroid Size: 0.8 x 0.8 x 0.6 cm compared to 0.8 x 0.7 x 0.7 cm. Composition: Solid. Echogenicity: Hypoechoic. Shape: wider than tall. Margins: Smooth (0 points). Echogenic foci: None (0 points). Total points: 4 ACR TI-RADS category: 4. Nodule number: Three Location: Left thyroid Size: 1.1 x 0.7 x 1.1 cm compared to 1.1 x 0.7 x 1.1cm. Composition: Predominant solid. Echogenicity: Hypoechoic. Shape: wider than tall. Margins: Smooth (0 points). Echogenic foci: None (0 points). Total points: 4 ACR TI-RADS category: 4. Nodule number: Four Location: Left Size: 0.5 x 0.4 x 0.5 cm compared to 0.4 x 0.4 x 0.4 cm. Composition: Solid. Echogenicity: Hypoechoic. Shape: wider than tall. Margins: Smooth (0 points). Echogenic foci: None (0 points). Total points: 4 ACR TI-RADS category: 4. IMPRESSION: Previous lesion identified in the right thyroid lobe is not seen on current exam. Lesion 1 is considered category 2. No additional follow-up is recommended. Lesions 2 and 4 considered category 4. Secondary to small size, no additional follow-up is recommende d. Lesion 3 is considered category 4. Secondary to size, additional follow-up at 1, 2, 3 and 5 years fro m initial visualization is recommended. ACR TI-RADS definitions and recommendations: TI-RADS 1 (benign): 0 points. FNA not needed. TI-RADS 2 (not suspicious): 2 points. FNA not needed. TI-RADS 3 (mildly suspicious): 3 points. "FNA if 2.5 cm or larger, follow up if 1.5 cm or larger (at 1, 3, and 5 years). TI-RADS 4 (moderately suspicious): 4-6 points. "FNA if 1.5 cm or larger, follow up if 1 cm or larger (at 1, 2, 3, and 5 years). TI-RADS 5 (highly suspicious): 7 points or more. "FNA if 1 cm or larger, follow up if 0.5 cm or larger (every year for 5 years). Reviewed by: Sarahi Stringer MD on 04/21/2023 8:22 PM PDT Approved by: Sarahi Stringer MD on 04/21/2023 8:22 PM PDT Station ID: [id number]
== END 2023-04-21 09:13 | disposition home or self-care (01) ==
LOC: DI 09:12
PROVIDERS: ATTEND Physician Assistant Medical
DX: E04.2 Nontoxic multinodular goiter (principal)

== ENCOUNTER 2023-05-21 14:14 | Outpatient (CLI) | payer BC ==
--- NOTE | 2023-05-22 09:24 | Mammography Report ---
BILATERAL DIGITAL SCREENING MAMMOGRAM 3D/2D: 05/21/2023 CLINICAL: Routine screening. Comparison is made to exams dated: 01/03/2023 mammogram, 05/21/2022 mammogram, 02/01/2021 mammogram, 07/28 mammogram, and 12/02/2019 mammogram - [facility]. Both breasts are almost entirely fatty (category a/<25% glandular tissue). No significant masses, calcifications, or other findings are seen in either breast. There has been no significant interval change. IMPRESSION: NEGATIVE There is no mammographic evidence of malignancy. A 1 year screening mammogram is recommended. Future imaging is recommended as follows: 01/04/2024 screening mammogram. Based on the Tyrer Cuzick model (a risk assessment model) the patients lifetime risk is 2.9% and her 10 year risk is 1.1%. According to the ACR, ACS, and NCCN guidelines, an annual breast MRI exam mil g with mammogram is recommended if the patients lifetime risk is 20% or greater. This exam was interpreted at Station ID: [id number]. NOTE: For mammograms, a report in lay terms will be sent to the patient. Approximately 15% of breast malignancies will not be visualized mammographically. In the management of a palpable breast mass, a negative mammogram must not discourage biopsy of a clinically suspicious lesion. Electronically Signed By: Gisela adkins/robin:05/21/2023 17:14:45 letter sent: No_Letter ACR BI-RADS Category 1: Negative 3341F PARENCHYMAL PATTERN: (F) - The breast(s) demonstrate(s) diffuse fatty replacement. BI-RADS CATEGORY: (1) - 1 Mammogram [id number] 1 year screening LATERALITY: (B)
== END 2023-05-21 14:15 | disposition home or self-care (01) ==
LOC: DI 14:14
DX: Z12.31 Encounter for screening mammogram for malignant neoplasm of breast (principal)

== ENCOUNTER 2023-12-14 15:24 | Outpatient (CLI) | payer BC ==
--- NOTE | 2023-12-15 20:28 | Ultrasound Report ---
PROCEDURE: Abdomen Limited INDICATIONS: INTRA-ABD AND PELVIC SWELLING, MASS AND LUMP, UNSP TECHNIQUE: Real-time focused scanning was performed of the abdomen, with image documentation. COMPARISONS: None. FINDINGS: There is no hernia visualized in the area palpated by the patient. An incidentally noted abdominal wa ll lymph node which measures 0.7 x 0.6 x 0.4 cm is present in the region. IMPRESSION: No sonographic evidence for ventral hernia despite Valsalva. Reviewed by: Lia Mayfield MD on 12/15/2023 8:26 PM PST Approved by: Lia Mayfield MD on 12/15/2023 8:26 PM PST Station ID: [id number]
== END 2023-12-14 15:25 | disposition home or self-care (01) ==
LOC: DI 15:24
PROVIDERS: ATTEND Surgery
DX: R19.00 Intra-abdominal and pelvic swelling, mass and lump, unspecified site (principal)

== ENCOUNTER 2024-01-09 15:05 | Outpatient (CLI) | payer BC ==
[2024-01-09 15:48] LABS: ALBUMIN 4.1 g/dL (3.2-5.5); ALBUMIN/GLOBULIN RATIO 1.9 (1.0-2.2); BILIRUBIN,TOTAL 0.4 mg/dL (0.2-1.0); CALCIUM 9.9 mg/dL (8.5-10.3); CREATININE 0.7 mg/dL (0.6-1.3); POTASSIUM 3.6 mmol/L (3.5-4.5); TOTAL PROTEIN 6.3 g/dL (6.4-8.9)
[2024-01-09 22:23] LABS: ESTIMATED AVERAGE GLUCOSE 97 mg/dL (70-100)
== END 2024-01-09 15:06 | disposition home or self-care (01) ==
LOC: LAB 15:05
DX: Z01.818 Encounter for other preprocedural examination (principal)
CPT/HCPCS: 36415; 80053; 83036

== ENCOUNTER 2024-06-13 08:00 | Outpatient (CLI) | payer BC ==
[2024-06-13 21:53] LABS: BACTERIAL VAGINOSIS DNA NEGATIVE (NEGATIVE); CANDIDA GLABRATA DNA NEGATIVE (NEGATIVE); CANDIDA GROUP DNA NEGATIVE (NEGATIVE); CANDIDA KRUSEI DNA NEGATIVE (NEGATIVE); TRICHOMONAS VAGINALIS DNA NEGATIVE (NEGATIVE)
== END 2024-06-13 23:59 | disposition home or self-care (01) ==
LOC: LAB 08:00
PROVIDERS: ATTEND Emergency Medicine
DX: R10.2 Pelvic and perineal pain (principal)
CPT/HCPCS: 81514; 87255

== ENCOUNTER 2024-07-21 13:17 | Outpatient (CLI) | payer BC ==
--- NOTE | 2024-07-21 20:39 | Ultrasound Report ---
PROCEDURE: Soft Tissue Head or Neck INDICATIONS: THYROID CYST TECHNIQUE: Real-time scanning was performed of the thyroid gland, with image documentation. COMPARISON: 04/21/2023 FINDINGS: Right: Thyroid lobe measures 4.5 x 1.7 x 1.6 cm. Left: Thyroid lobe measures 4.7 x 1.4 x 1.8 cm Isthmus: 0.3 cm thick. Echotexture: Heterogeneous. Nodule number: One Location: Upper pole right thyroid lobe Size: 0.6 x 0.4 x 0.4 cm, previously 0.6 x 0.5 x 0.5 cm. Composition: Cystic. Echogenicity: Anechoic (0 points). Shape: wider than tall (0 points). Margins: Smooth (0 points). Echogenic foci: None (0 points). Total points: 0 ACR TI-RADS category: TI-RADS 1: Benign. Nodule number: Two Location: Upper pole left thyroid lobe Size: 0.7 x 0.7 x 0.8 cm, previously 0.8 x 0.8 x 0.6 cm. Composition: Solid (2 points). Echogenicity: Isoechoic (1 point). Shape: wider than tall (0 points). Margins: Ill-defined (0 points). Echogenic foci: None (0 points). Total points: 3 ACR TI-RADS category: TI-RADS 3: Mildly suspicious. Nodule number: Three Location: Lower pole left thyroid lobe Size: 1.1 x 0.9 x 0.7 cm, previously 1.1 x 1.1 x 0.7 cm. Composition: Spongiform (0 points). Echogenicity: Hypoechoic (2 points). Shape: wider than tall (0 points). Margins: Lobulated / Irregular (2 points). Echogenic foci: None (0 points). Total points: 4 ACR TI-RADS category: TI-RADS 4: Moderately suspicious. Nodule number: Four Location: Lower pole left thyroid lobe Size: 0.5 x 0.5 x 0.4 cm, previously 0.5 x 0.5 x 0.4 cm. Composition: Solid (2 points). Echogenicity: Hypoechoic (2 points). Shape: wider than tall (0 points). Margins: Smooth (0 points). Echogenic foci: None (0 points). Total points: 4 ACR TI-RADS category: 4 IMPRESSION: Patient's known bilateral thyroid nodules are all stable in size and appearance. Continue ultrasound follow-up of nodule 3 is recommended. ACR TI-RADS definitions and recommendations: TI-RADS 1 (benign): 0 points. FNA not needed. TI-RADS 2 (not suspicious): 2 points. FNA not needed. TI-RADS 3 (mildly suspicious): 3 points. "FNA if 2.5 cm or larger, follow up if 1.5 cm or larger (at 1, 3, and 5 years). TI-RADS 4 (moderately suspicious): 4-6 points. "FNA if 1.5 cm or larger, follow up if 1 cm or larger (at 1, 2, 3, and 5 years). TI-RADS 5 (highly suspicious): 7 points or more. "FNA if 1 cm or larger, follow up if 0.5 cm or larger (every year for 5 years). Reviewed by: Trey Woodson MD on 07/21/2024 8:38 PM PDT Approved by: Trey Woodson MD on 07/21/2024 8:38 PM PDT Station ID: [id number]
== END 2024-07-21 13:18 | disposition home or self-care (01) ==
LOC: DI 13:17
PROVIDERS: ATTEND Physician Assistant Medical
DX: E04.1 Nontoxic single thyroid nodule (principal)

== ENCOUNTER 2024-07-22 13:08 | Outpatient (CLI) | payer BC ==
--- NOTE | 2024-07-22 16:54 | DEXA Report ---
PROCEDURE: Dexa Spine and/or Hip INDICATIONS: POST MENOPAUSAL TECHNIQUE: Dual energy x-ray absorptiometry (DXA) was performed on a Sien System. Regions measur ed are the AP Spine, femoral neck, and if needed forearm. COMPARISON: 09/05/2020 FINDINGS: Lumbar Spine: Bone Mineral Density: 1.467 g/cm/cm,T score: 2.4. Since the most recent prior study, there has been a statistically significant increase in bone mineral density by 1.9 percent. Left Femoral Neck: Bone Mineral Density: 1.141 g/cm/cm, T score: 0.7. Left Hip: Bone Mineral Density: 1.205 g/cm/cm,T score: 1.6. Since the most recent prior study, there has been a statistically significant decrease in bone mineral density by 7.2 percent. FRAX risk factors: None given. (T score greater or equal to -1.0: NORMAL) (T score from -1.1 to -2.4: OSTEOPENIA) (T score less than or equal to -2.5 to: OSTEOPOROSIS) Impression: By WHO criteria, this patient has normal bone density. Interval statistical increase in bone mineral density of the lumbar spine. Interval statistical decre ase in bone mineral density of the hip. Patients with diagnosis of osteoporosis or osteopenia should have regular bone mineral density assess ment. For those eligible for Medicare, routine testing is allowed once every 2 years. Testing frequ ency can be increased for patients who have rapidly progressing disease or for those who are receivin g medical therapy to restore bone mass. Reviewed by: Trey Sawyer MD on 07/22/2024 4:52 PM PDT Approved by: Trey Sawyer MD on 07/22/2024 4:52 PM PDT Station ID: [id number]
== END 2024-07-22 13:09 | disposition home or self-care (01) ==
LOC: DI 13:08
PROVIDERS: ATTEND Physician Assistant Medical
DX: Z78.0 Asymptomatic menopausal state (principal)